=== PATIENT | female | born 1945 | race Caucasian/White ===

== ENCOUNTER → 2017-07-11 | Emergency (ER) | payer OTHER ==
[~2017-07-11] MED LIST: BUPIVACAINE HCL/PF 0.5% (5MG/ML) 10 ML VIAL ONE; HYDROmorphone HCL CARPU-JECT 1 MG/1 ML DISP.SYRIN IVPB ONE; HYDROmorphone HCL CARPU-JECT 1 MG/1 ML DISP.SYRIN IVPUSH ONE; HYDROmorphone HCL CARPU-JECT 1 MG/1 ML DISP.SYRIN ONE; LORazepam 2 MG/ML SDV VIAL ONE; morphine CARPU-JECT 4 MG/1 ML DISP.SYRIN IVPUSH ONE
--- NOTE | 2017-07-11 19:29 | PDOC ---
History of Present Illness - General History Source: Patient Exam Limitations: No Limitations - History of Present Illness Initial Comments: 07/11/17 20:37 Patient is a 71 year old female with a significant past medical history of anxiety, Hypothyroidism, who was brought by EMS to the ED with complaints of left hip pain, s/p fall that occured 1 hour prior to arrival. Patient reports walking in house when she tripped over her cat causing her to fall, causing immediate pain. She reports not being able to get up or walk after fall occured. Patient reports experiencing leg leg numbness in the secondary to fall. Denies chest pain, SOB. Denies nausea, vomiting. Denies fevers, chills. Denies loss of consciousness, hitting her head. Denies any other symptoms. Allergies: None Social history: No smoking. No alcohol. No illicit drugs. Surgical history: Bilateral hip replacement PMD: None <Bradley Mayer - Last Filed: 07/11/17 20:37> <Idris Sams - Last Filed: 07/12/17 06:31> - General Chief Complaint: Injury Stated Complaint: fall,left leg pain Time Seen by Provider: 07/11/17 19:28 Past History <Bradley Mayer - Last Filed: 07/11/17 20:37> - Past Medical History Psychiatric Problems: Yes (anxiety) Thyroid Disease: Yes (HYPOTHYROIDISM) - Surgical History Orthopedic Surgery: Yes ( for right hip replacement ) - Suicide/Smoking/Psychosocial Hx Smoking Status: No Smoking History: Unknown if ever smoked Number of Cigarettes Smoked Daily: 0 <Idris Sams - Last Filed: 07/12/17 06:31> - Past Medical History Allergies/Adverse Reactions: Allergies Allergy/AdvReac Type Severity Reaction Status Date / Time No Known Allergies Allergy Verified 07/11/17 19:24 Home Medications: Ambulatory Orders Levothyroxine [Synthroid] 125 mcg PO DAILY 01/22/12 Alprazolam [Xanax] 0 mg PO PRN PRN 07/11/17 Review of Systems - Review of Systems Able to Perform ROS?: Yes Comments:: 07/11/17 20:37 GENERAL/CONSTITUTIONAL: No fever or chills. No weakness. HEAD, EYES, EARS, NOSE AND THROAT: No change in vision. No ear pain or discharge. No sore throat. CARDIOVASCULAR: No chest pain or shortness of breath. RESPIRATORY: No cough, wheezing, or hemoptysis. GASTROINTESTINAL: No nausea, vomiting, diarrhea or constipation. GENITOURINARY: No dysuria, frequency, or change in urination. MUSCULOSKELETAL: No joint or muscle swelling or pain. No neck or back pain. SKIN: No rash NEUROLOGIC: No headache, vertigo, loss of consciousness, or change in strength/ sensation. ENDOCRINE: No increased thirst. No abnormal weight change. HEMATOLOGIC/LYMPHATIC: No anemia, easy bleeding, or history of blood clots. ALLERGIC/IMMUNOLOGIC: No hives or skin allergy. All Other Systems: Reviewed and Negative <Bradley Mayer - Last Filed: 07/11/17 20:37> *Physical Exam - Vital Signs Last Vital Signs Temp Pulse Resp BP Pulse Ox 98.1 F 85 18 149/95 100 07/11/17 19:24 07/11/17 19:24 07/11/17 19:24 07/11/17 19:24 07/11/17 19:24 - Physical Exam Comments: 07/11/17 20:37 GENERAL: Awake, alert, and fully oriented, in no acute distress HEAD: No signs of trauma EYES: PERRLA, EOMI, sclera anicteric, conjunctiva clear ENT: Auricles normal inspection, hearing grossly normal, nares patent, oropharynx clear without exudates. Moist mucosa NECK: Normal ROM, supple, no lymphadenopathy, JVD, or masses LUNGS: Breath sounds equal, clear to auscultation bilaterally. No wheezes, and no crackles HEART: Regular rate and rhythm, normal S1 and S2, no murmurs, rubs or gallops ABDOMEN: Soft, nontender, normoactive bowel sounds. No guarding, no rebound. No masses PELVIS: +Tenderness over left hip. No other bony tenderness. EXTREMITIES: Normal range of motion, no edema. No clubbing or cyanosis. No cords, erythema, or tenderness NEUROLOGICAL: Cranial nerves II through XII grossly intact. Normal speech, SKIN: Warm, Dry, normal turgor, no rashes or lesions noted. <Bradley Mayer - Last Filed: 07/11/17 20:37> ED Treatment Course - Medications Given in the ED: ED Medications Discontinued Medications Generic Name Dose Route Start Last Admin Trade Name Freq PRN Reason Stop Dose Admin Hydromorphone HCl 1 mg 07/11/17 19:35 07/11/17 19:44 Dilaudid Injection - IVPUSH 07/11/17 19:36 1 mg ONCE ONE Administration Hydromorphone HCl 1 mg 07/11/17 19:57 07/11/17 20:04 Dilaudid Injection - IVPUSH 07/11/17 19:58 1 mg ONCE ONE Administration Morphine Sulfate 4 mg 07/11/17 19:28 07/11/17 19:34 Morphine Injection - IVPUSH 07/11/17 19:29 4 mg ONCE ONE Administration <Bradley aMyer - Last Filed: 07/11/17 20:37> Medical Decision Making - Medical Decision Making 07/12/17 06:29 Plain films: mitali-prosthetic L hip fx, as read by me, referred to radiology for definitive review d/w pt's ortho Dr. Hernández at [facility], will accept trasfer procedure: Femoral nerve block, POCUS guided, with bupivacaine .5%, 15cc a/p mitali-prosthetic hip fx analgesia transfer for definitive care <Idris Sams - Last Filed: 07/12/17 06:31> *DC/Admit/Observation/Transfer - Attestations Scribe Attestion: 07/11/17 20:38 Documentation prepared by Bradley Mayer, acting as medical payment poster for Idris Sams MD/DO. <Bradley Mayer - Last Filed: 07/11/17 20:37> <Idris Sams - Last Filed: 07/12/17 06:31> Diagnosis at time of Disposition: Hip fracture Qualifiers: Encounter type: initial encounter Fracture type: closed Laterality: left Qualified Code(s): S72.002A - Fracture of unspecified part of neck of left femur , initial encounter for closed fracture - Discharge Dispostion Disposition: TRANSFER ACUTE CARE/OTHER HOSP Condition at time of disposition: Fair
[2017-07-11 19:33] VITALS: BMI 20.8
[2017-07-12 00:34] VITALS: BP 154/70; PULSE 100; TEMP 98.5
== END | disposition short-term general hospital (02) ==
LOC: FER 19:23
PROC: 3E033NZ Introduction of Analgesics, Hypnotics, Sedatives into Peripheral Vein, Percutaneous Approach (ICD-10-PCS; principal; 2017-07-11)
PROC: 3E0T3BZ Introduction of Anesthetic Agent into Peripheral Nerves and Plexi, Percutaneous Approach (ICD-10-PCS; 2017-07-11)
DX: S72.002A Fracture of unspecified part of neck of left femur, initial encounter for closed fracture (principal); W01.0XXA Fall on same level from slipping, tripping and stumbling without subsequent striking against object, initial encounter; Y93.89 Activity, other specified; Y92.009 Unspecified place in unspecified non-institutional (private) residence as the place of occurrence of the external cause; Z96.643 Presence of artificial hip joint, bilateral; F41.9 Anxiety disorder, unspecified; E03.9 Hypothyroidism, unspecified
CPT/HCPCS: 64448; 73523-TC; 96374; 96375; 96376; 99282-25

== ENCOUNTER 2019-05-03 19:25 | Emergency (ER) | payer OTHER, MEDICARE ==
[2019-05-03 19:45] VITALS: BP 149/91; PULSE 90; TEMP 97.8; BMI 21.2
[2019-05-03] MEDS ORDERED: KETOROLAC TROMETHAMINE 60 MG/2 ML VIAL ONE (19:48)
[2019-05-03] MEDS ORDERED: KETOROLAC TROMETHAMINE 60 MG/2 ML VIAL IM ONE (19:50)
--- NOTE | 2019-05-03 19:52 | PDOC ---
Documentation entered by Rona Aldridge SCRIBE, acting as scribe for Jeremy Thomas MD. Jeremy Thomas MD: This documentation has been prepared by the Luis Carlos ashley Aiswarya, SCRIBE, under my direction and personally reviewed by me in its entirety. I confirm that the documentation accurately reflects all work, treatment, procedures, and medical decision making performed by me. History of Present Illness - General Chief Complaint: Chest Pain Stated Complaint: STERNAL PAIN History Source: Patient Exam Limitations: No Limitations - History of Present Illness Initial Comments: 05/03/19 19:51 Assessment and plan: This is a 73-year-old female who comes in complaining of sternal pain in the lower third of her sternum. Patient injured it 2 days ago while trying to get something out of a dumpster that she accidentally threw away. Patient was here yesterday and had a chest x-ray as an outpatient that was read as normal. Patient now returns because she is having too much pain and discomfort. Patient medicated with Toradol and a sternal x-ray was obtained. 05/03/19 19:57 The patient is a 73 year old female, with a significant PMH of myelodysplastic syndrome, anxiety, and hypothyroidism, who presents to the emergency department with sternum pain that began 2 days ago. Patient states she injured the lower 3rd part of her sternum while trying to get something out of the dumpster that she accidentally threw away. Patient had a chest xray done yesterday which was normal but patient states pain has progressively worsened. She notes pain is exacerbated with deep inspiration. The patient denies shortness of breath, headache and dizziness.Denies fever, chills, nausea, vomit , diarrhea and constipation. Denies any numbness or tingling. . PAST MEDICAL HISTORY: myelodysplastic syndrome, anxiety, and hypothyroidism PAST SURGICAL HISTORY: right hip replacement FAMILY HISTORY: no pertinent history SOCIAL HISTORY: Pt lives with family and is employed. MEDICATIONS: reviewed ALLERGIES: As per nursing notes Adult ROS General: No fevers or chills, no weakness, no weight loss HEENT: No change in vision. No sore throat,. No ear pain CardioVascular: No chest pain or shortness of breath Respiratory:No cough, or wheezing. Gastrointestinal: no nausea, vomiting, diarrhea or constipation, No rectal bleeding Genitourinary: No dysuria, hematuria, or frequency Musculoskeletal: +sternum pain Neurologic: No headache, vertigo, dizziness or loss of consciousness Psychiatric: nor depression Skin: No rashes or easy bruising Endocrine: no increased thirst or abnormal weight change Allergic: no skin or latex allergy All other systems reviewed and normal Adult Exam: General: Well-nourished well-developed individual, no acute distress HEENT: Throat: Normal, tonsils normal, no erythema or exudate Neck: Supple, no meningeal signs, no lymphadenopathy Eyes::Pupils equal reactive and round, extraocular motion intact Chest: +tenderness on palpation to the lower 3rd of the sternum. No tenderness to rib, ecchymosis or swelling. Cardiac: S1-S2 normal, regular rate and rhythm, no murmurs rubs or gallops Respiratory: Lungs clear to auscultation bilateral Abdomen: Soft, nondistended, normal bowel sounds, nontender to palpation diffusely Extremities: Warm, dry, no cyanosis, clubbing, or edema Skin: No rashes Neuro: Alert and oriented x3, nonfocal exam, grossly intact, normal gait Psych: Normal mood and affect Past History - Past Medical History Allergies/Adverse Reactions: Allergies Allergy/AdvReac Type Severity Reaction Status Date / Time No Known Allergies Allergy Verified 07/11/17 19:24 Home Medications: Ambulatory Orders Levothyroxine [Synthroid] 125 mcg PO DAILY 01/22/12 Alprazolam [Xanax] 0 mg PO PRN PRN 07/11/17 Naproxen [Naprosyn] 500 mg PO BID #20 tablet 05/03/19 Anemia: Yes (MYELODYSPLASTIC SYNDROME) COPD: No Psychiatric Problems: Yes (anxiety) Thyroid Disease: Yes (HYPOTHYROIDISM) - Surgical History Orthopedic Surgery: Yes ( for right hip replacement ) - Psycho Social/Smoking Cessation Hx Smoking Status: No Smoking History: Unknown if ever smoked Have you smoked in the past 12 months: No Number of Cigarettes Smoked Daily: 0 Information on smoking cessation initiated: No Hx Alcohol Use: No Drug/Substance Use Hx: No Substance Use Type: None *Physical Exam - Vital Signs Last Vital Signs Temp Pulse Resp BP Pulse Ox 97.8 F 90 16 149/91 100 05/03/19 19:28 05/03/19 19:28 05/03/19 19:28 05/03/19 19:28 05/03/19 19:28 ED Treatment Course - RADIOLOGY Radiology Studies Ordered: Category Date Time Status STERNUM 2 VIEWS [RAD] Stat Radiology 05/03/19 19:50 Ordered Discharge - Discharge Information Problems reviewed: Yes Clinical Impression/Diagnosis: Sternal fracture Qualifiers: Encounter type: initial encounter Sternal location: unspecified Fracture type: closed Qualified Code(s): S22.20XA - Unspecified fracture of sternum, initial encounter for closed fracture Condition: Stable Disposition: HOME - Admission No - Additional Discharge Information Prescriptions: Naproxen [Naprosyn] 500 mg PO BID #20 tablet - Follow up/Referral Referrals: Andreas Mcfarland MD [Primary Care Provider] - - Patient Discharge Instructions Additional Instructions: For the pain take naproxen 1 tablet twice a day with food do not take on an empty stomach. I sent a prescription to your pharmacy for the naproxen. Your x-ray showed a nondisplaced fracture of the sternum. Return to the emergency department immediately with ANY new, persistent or worsening symptoms. Continue any medications as previously prescribed by your physician. You should follow up with your primary doctor as soon as possible regarding today's emergency department visit. . Please make sure your doctor reviews the results of your emergency evaluation. Thank you for coming to the Emergency Department today for your care. It was a pleasure to see you today. Please note that your evaluation is INCOMPLETE until you follow-up with your doctor. - Post Discharge Activity
--- NOTE | 2019-05-04 11:31 | EKG ---
Test Reason : Blood Pressure : / mmHG Vent. Rate : 086 BPM Atrial Rate : 086 BPM P-R Int : 128 ms QRS Dur : 080 ms QT Int : 390 ms P-R-T Axes : 059 -20 058 degrees QTc Int : 466 ms NORMAL SINUS RHYTHM NORMAL ECG NO PREVIOUS ECGS AVAILABLE Confirmed by GENOVEVA PALMA, SPENCER ([id number]) on 05/04/2019 11:31:05 AM Referred By: VERONIKA MCGRAW Confirmed By:SPENCER TOMAS MD
== END 2019-05-03 20:40 | disposition home or self-care (01) ==
LOC: FER 19:25
PROC: 3E0233Z Introduction of Anti-inflammatory into Muscle, Percutaneous Approach (ICD-10-PCS; principal; 2019-05-03)
DX: S22.20XA Unspecified fracture of sternum, initial encounter for closed fracture (principal); E03.9 Hypothyroidism, unspecified; D64.9 Anemia, unspecified; F41.9 Anxiety disorder, unspecified; W22.8XXA Striking against or struck by other objects, initial encounter; Y93.89 Activity, other specified; Y92.9 Unspecified place or not applicable
CPT/HCPCS: 71120-TC-FY; 93005; 96372; 99282-25

== ENCOUNTER 2020-04-03 17:30 | Emergency (ER) | payer OTHER, MEDICARE ==
--- NOTE | 2020-04-03 17:34 | PDOC ---
History of Present Illness - General Chief Complaint: Altered Mental Status Stated Complaint: PER EMS CONFUSED IN [place] PARKING LOT - History of Present Illness Initial Comments: 04/03/20 18:15 74 yo female with pmh of MDS and hypothyroidism brought to the ED by EMS for AMS. Pt according to EMS came in to gym for physical therapy and was wandering around parking lot. According to pt she fell yesterday down her stairs did not hit head and went to [facility] for an evaluation. At [facility] she was given a CT of the head which was negative. Pt also hurt right foot on fall and wanted to go to gym for physical therapy on foot. As the pt was walking towards her car pt was "grabbed" by EMS and because she was not sure what the date was was sent to the ER. PT currently denying any lightheadenss, headache, chest pain, sob, abd pain, n/v/d/c. PMH: MDS, hypothyroidism Meds: synthroid Allergies: denies PSH: left leg surgery PCP: [facility] Social: occasional alcohol; denies drugs or tobacco Past History - Medical History Allergies/Adverse Reactions: Allergies Allergy/AdvReac Type Severity Reaction Status Date / Time No Known Allergies Allergy Verified 04/03/20 17:33 Home Medications: Ambulatory Orders Levothyroxine [Synthroid -] 25 mcg PO DAILY 04/03/20 Anemia: Yes (MYELODYSPLASTIC SYNDROME) COPD: No Psychiatric Problems: Yes (anxiety) Thyroid Disease: Yes (HYPOTHYROIDISM) - Surgical History Orthopedic Surgery: Yes ( for right hip replacement ) - Psycho-Social/Smoking History Smoking Status: No Smoking History: Unknown if ever smoked Have you smoked in the past 12 months: No Number of Cigarettes Smoked Daily: 0 Review of Systems - Review of Systems Comments:: 04/03/20 22:30 GENERAL/CONSTITUTIONAL: No fever or chills. No weakness. HEAD, EYES, EARS, NOSE AND THROAT: No change in vision. No ear pain or discharge. No sore throat. CARDIOVASCULAR: No chest pain or shortness of breath RESPIRATORY: No cough, wheezing, or hemoptysis. GASTROINTESTINAL: No nausea, vomiting, diarrhea or constipation. GENITOURINARY: No dysuria, frequency, or change in urination. MUSCULOSKELETAL: Right ankle pain SKIN: No rash NEUROLOGIC: No headache, vertigo, loss of consciousness, or change in strength/sensation. ENDOCRINE: No increased thirst. No abnormal weight change ALLERGIC/IMMUNOLOGIC: No hives or skin allergy. *Physical Exam - Physical Exam 04/03/20 22:31 GENERAL: Awake, alert, and fully oriented, in no acute distress HEAD: No signs of trauma, normocephalic, atraumatic EYES: PERRLA, EOMI, sclera anicteric, conjunctiva clear ENT: Auricles normal inspection, hearing grossly normal, nares patent, oropharynx clear without exudates. Moist mucosa NECK: Normal ROM, supple, no lymphadenopathy, JVD, or masses LUNGS: No distress, speaks full sentences, clear to auscultation bilaterally HEART: Regular rate and rhythm, normal S1 and S2, no murmurs, rubs or gallops, peripheral pulses normal and equal bilaterally. ABDOMEN: Soft, nontender, normoactive bowel sounds. No guarding, no rebound. No masses EXTREMITIES : 3 cm ecchymosis on dorsal aspect on right foot. FUll rom in upper and lower ext NEUROLOGICAL: Cranial nerves II through XII intact. Normal speech, normal gait, no focal sensorimotor deficits. Finger to nose and heel to cameron intact. SKIN: Warm, Dry, normal turgor, no rashes or lesions noted Medical Decision Making - Medical Decision Making 04/03/20 18:24 74 yo female with pmh MDS and hypothyroidism (with psych history from chart) presents to ED for AMS according to EMS. PT wants to leave AMA here is AAOx3, understands what has happened to her, denies any alcohol or intoxication, and pt fully understands risks and benefits to not receiving full medical evaluation. Pt understands risk of possible stroke, bleed, infection, coma, paralysis, and more. Pt fully understands risk but rather go home and be with daughter who is returning from grad school so decided to leave AMA. Discharge - Discharge Information Problems reviewed: Yes Clinical Impression/Diagnosis: MDS (myelodysplastic syndrome), Confusion Condition: Stable Disposition: AGAINST MEDICAL ADVICE - Follow up/Referral - Patient Discharge Instructions Patient Printed Discharge Instructions: How to Prevent Falls Additional Instructions: You came to the ED after a fall. You want to leave aganist medical advice. You are alert awake and oriented to person, place and time. You understand the decision to leave the risk of infection, bleeding, stroke, heart attack, fracture, coma, or . Please return if you have any of the following: - extreme headache - loss of consciousness - chest pain or shortness of breath Any emergent symptoms please call for medical help right away. - Post Discharge Activity
--- NOTE | 2020-04-03 17:41 | PDOC ---
Attending Attestation - Resident Resident Name: Jose Collier - ED Attending Attestation I have performed the following: I have examined & evaluated the patient, The case was reviewed & discussed with the resident, I agree w/resident's findings & plan, Exceptions are as noted - HPI HPI: 04/03/20 17:37 74YOF with h/o myelodysplastic syndrome, right hip replacement, hypothyroidism on levothyroxine, anxiety on alprazolam, prior fall with resultant hip fracture (2018), and prior fall with resultant sternal fracture (2019), who was BIBEMS for report of confusion. EMS states bystanders called because the patient was wandering around in a parking lot trying to find her car and trying to find her physical therapist. The patient herself states she forgot where she parked and had just exited the building from the PT office and the EMS crew found her and put her on the stretcher and took her here against her will. She has no complaints, is A/Ox3 (cannot say the date), and she wants to go home. She declines any workup or intervention at this time, states she has an appointment with her PCP at [facility] on Monday04/07/20. - Physicial Exam PE: 04/03/20 17:40 GENERAL: elderly, nontoxic-appearing, no distress, a bit bizarre but A/Ox3 and answers questions appropriately HEENT: PERRLA, EOMI, moist mucous membranes NECK/BACK: no midline ttp, no spinal stepoff or deformity, no hematoma, full ROM, neck supple CARDIOVASCULAR: regular rate/rhythm, no MGR, strong peripheral pulses, capillary refill <2 seconds, extremities wwp, no edema LUNGS/RESPIRATORY: no respiratory distress, CTAB GI/ABDOMEN: symmetric [id number], normoactive BS, soft, no ttp, no midline pulsatile masses : no CVA tenderness MSK/EXTREMITIES: no acute-appearing muscle atrophy, no acute deformity DERM/SKIN: warm and dry, no pallor, no jaundice, no rash, no pathologic- appearing bruising, no skin breakdown, no cuts, no lesions NEUROLOGICAL: GCS 15, CN II-XII grossly intact, 5/5 strength proximally and distally, no facial droop, normal gait - Medical Decision Making 04/03/20 17:40 74YOF with MDS p/w reported confusion as stated by EMS, found in parking lot wandering per their report. Initial Vital Signs Temp Pulse Resp BP Pulse Ox 97.8 F 89 16 139/74 99 04/03/20 17:33 04/03/20 17:33 04/03/20 17:33 04/03/20 17:33 04/03/20 17:33 Patient refusing any and all workup and treatment. States she wants to go home and will sign AMA. She is a bit bizarre affect but is A/Ox3 and has decision making capacity. I have had a long discussion with them about the risks of leaving against our strong recommendation. She understands that the risks include and serious morbidity. She is of sound mind, is able to internalize and process and repeat back the information to me. Despite our conversation and her understanding of the gravity of the situation, she chooses to leave AMA. AMA paperwork is completed and signed by all required parties. We also give them very clear discharge instructions to come back if they change their mind. We give them instructions on how to best care for themselves at home given that they choose not to stay here. Specific return precautions are discussed and they know they can return to the ED at any time. Discharge - Discharge Information Problems reviewed: Yes Clinical Impression/Diagnosis: MDS (myelodysplastic syndrome), Confusion Condition: Stable Disposition: AGAINST MEDICAL ADVICE - Admission No - Follow up/Referral - Patient Discharge Instructions Patient Printed Discharge Instructions: How to Prevent Falls Additional Instructions: You came to the ED after a fall. You want to leave aganist medical advice. You are alert awake and oriented to person, place and time. You understand the decision to leave the risk of infection, bleeding, stroke, heart attack, fracture, coma, or . Please return if you have any of the following: - extreme headache - loss of consciousness - chest pain or shortness of breath Any emergent symptoms please call for medical help right away. - Post Discharge Activity
--- OUTSIDE RECORDS SUMMARY | 2020-04-03 17:41 | XMS ---
:1945 Author Organization [facility] Care Team Providers Name Role Phone Wilmer Del Rio MD Unavailable Unavailable FaderAndreas Unavailable Fader, M Unavailable Fader, M Unavailable Fader, M Unavailable Fader, M Unavailable Fader, M Unavailable Fader, M Unavailable Fader, M Unavailable Fader, M Unavailable Fader, M Unavailable Fader, M Unavailable Fader, M Unavailable Fader, M Unavailable Fader, M Unavailable Re-disclosure Warning The records that you are about to access may contain information from federally- assisted alcohol or drug abuse programs. If such information is present, then the following federally mandated warning applies: This information has been disclosed to you from records protected by federal confidentiality rules (42 CFR part 2). The federal rules prohibit you from making any further disclosure of this information unless further disclosure is expressly permitted by the written consent of the person to whom it pertains or as otherwise permitted by 42 CFR part 2. A general authorization for the release of medical or other information is NOT sufficient for this purpose. The Federal rules restrict any use of the information to criminally investigate or prosecute any alcohol or drug abuse patient.The records that you are about to access may contain highly sensitive health information, the redisclosure of which is protected by Article 27-F of the [facility] Public Health law. If you continue you may haveaccess to information: Regarding HIV / AIDS; Provided by facilities licensed or operated by the [facility] Office of Mental Health; or Provided by the [facility] Office for People With Developmental Disabilities. If such information is present, then the following [facility] mandated warning applies: This information has been disclosed to you from confidential records which are protected by state law. State law prohibits you from making any further disclosure of this information without the specific written consent of the person to whom it pertains, or as otherwise permitted by law. Any unauthorized further disclosure in violation of state law may result in a fine or halfway sentence or both. A general authorization for the release of medical or other information is NOT sufficient authorization for further disclosure. Encounters Encounter Providers Location Date Indications Data Source(s ) Attender: Andreas 02/27/2020 [facility] ( [facility] 12:[facility]:00 AM [facility]) Office Attender: Andreas Mcfarland 02/27/2020 12:00:00 AM E DT [facility] ([facility] Office Attender: Andreas Mcfarland 02/27/2020 12:00:00 AM E DT [facility] Office Attender: Andreas Mcfarland 02/27/2020 12:00:00 AM E DT [facility] ([facility] Office Attender: Andreas Mcfarland 01/09/2020 12:00:00 AM E DT [facility] Office Attender: Andreas Mcfarland 01/09/2020 12:00:00 AM E DT [facility] Office Attender: Andreas Mcfarland 01/09/2020 12:00:00 AM E DT [facility] Office Outpatient Attender: Wilmer 01/25/2019 08:00:00 2UPRBC-ANE MORGAN Margarito Del Rio MD AM [facility]T [facility] [id number] Medications Medication Brand Start Product Dose Route Administrative Pharmacy marcellus Indications Reaction Description Data Name Date Form Instructions Instructions Source(s) Alprazolam ALPRAZ 02/26/ TABLET 90 complet ALPRA ZOLAM [facility] (St 1 MG Oral OLAM:2019 ed [facility] Tablet [id number] 12:00: Medical, ALPRAZOLAM: 00 AM PC) [id number] EDT Temazepam TEMAZE 02/26/ CAPSULE 9 complet TEMAZ EPAM [facility] (St 15 MG Oral LIS:2019 ed [facility] Capsule [id number] 12:00: Medical, TEMAZEPAM:1 00 AM PC) [id number] EDT Mirtazapine MIRTAZ 02/02/ TABLET 30 complet MIRT AZAPINE [facility] (St 15 MG Oral APINE: 2019 ed [facility] Tablet [id number] 12:00: Medical, MIRTAZAPINE 00 AM PC) :[id number] EDT Levothyroxi LEVOTH 01/06/ TABLET 90 complet LEVO THYROXIN [facility] (St ne Sodium YROXIN 2019 ed E [facility] 0.125 MG [id number] 12:00: Medical , Oral Tablet 24 00 AM PC) LEVOTHYROXI EDT [id number] Levothyroxi LEVOTH 01/06/ TABLET 90 complet LEVO THYROXIN [facility] (St ne Sodium YROXIN 2019 ed E [facility] 0.125 MG [id number] 12:00: Medical , Oral Tablet 24 00 AM PC) LEVOTHYROXI EDT [id number] Mirtazapine MIRTAZ 12/29/ TABLET 30 complet MIRT AZAPINE [facility] (St 15 MG Oral APINE: 2019 ed [facility] Tablet [id number] 12:00: Medical, MIRTAZAPINE 00 AM PC) :[id number] EDT Alprazolam ALPRAZ 12/03/ TABLET 90 complet ALPRA ZOLAM [facility] (St 1 MG Oral OLAM:2019 ed [facility] Tablet 60571 12:00: Medical, ALPRAZOLAM: 00 AM PC) [id number] EDT Insurance Providers Payer name Policy type Policy ID Covered Covered constitution party's Policy P francisco / Coverage constitution party ID relationship to Rossi Inf ormation type rossi MEDICARE [id number] SP [id number] [id number] [facility] [id number] SP [id number] CARE [place] [id number] PART B DOWNSTATE AARP MEDICARE [id number] SU[place] [id number] PART B DOWNSTATE MEDICARE [id number] SP [id number] [id number] [facility] [id number] PT [id number] CARE OPTIONS MEDICARE [id number] PT [id number] N32 [facility] [id number] SP [id number] CARE OPTIONS MEDICARE [id number] SP [id number] N32 MEDICARE [id number] SP [id number] A Problems, Conditions, and Diagnoses Code Display Name Description Problem Type Effective Dates Data Source(s) G47.00 Insomnia, INSOMNIA, Problem 02/27/2020 [facility] (St unspecified UNSPECIFIED 12:00:00 AM RINA Bailey) R07.2 Precordial pain PRECORDIAL PAIN Problem 05/02/2019 MEDG EN (St 12:00:00 AM RINA Morse) R07.2 Precordial pain PRECORDIAL PAIN Problem 05/02/2019 MEDG EN (St 12:00:00 AM RINA Morse) Surgeries/Procedures Procedure Description Date Indications Data Source(s) Documentation of current 02/27/2020 [facility] ([facility] (procedure) 12:00:00 AM EDRINA Altman) Documentation of current 02/27/2020 [facility] ([facility] (procedure) 12:00:00 AM RINA Prescott) OFFICE OUTPATIENT VISIT 02/27/2020 [facility] ([facility] 15 MINUTES 12:00:00 AM RINA Cerna) Documentation of current 01/09/2020 [facility] ([facility] (procedure) 12:00:00 AM RINA Prescott) Documentation of current 01/09/2020 [facility] ([facility] (procedure) 12:00:00 AM RINA Prescott) Documentation of current 01/09/2020 [facility] ([facility] (procedure) 12:00:00 AM EDT edical, ) Documentation of current 01/09/2020 [facility] ([facility] (procedure) 12:00:00 AM EDT edical, ) Documentation of current 01/09/2020 [facility] ([facility] (procedure) 12:00:00 AM EDT [facility], ) Documentation of current 01/09/2020 [facility] current 01/09/2020 [facility], 01/09/2020 [facility] N ([facility] includes a personalized 12:00:00 AM EDT [facility], ) prevention plan of service (pps), subsequent visit ECG ROUTINE ECG W/LEAST 01/09/2020 [facility] EN ([facility] 12 LDS W/I&R 12:00:00 AM [facility], ) Documentation of current 01/09/2020 [facility] ([facility] (procedure) 12:00:00 AM EDT [facility], ) Documentation of current 01/09/2020 [facility] ([facility] (procedure) 12:00:00 AM EDT [facility], ) Annual wellness visit, 01/09/2020 MED[facility] N ([facility] includes a personalized 12:00:00 AM EDT [facility], ) prevention plan of service (pps), subsequent visit ECG ROUTINE ECG W/LEAST 01/09/2020 [facility] EN ([facility] 12 LDS W/I&R 12:00:00 AM [facility], ) Documentation of current 07/04/2019 [facility] ([facility] (procedure) 12:00:00 AM EST edical, ) Documentation of current 07/04/2019 [facility] ([facility] (procedure) 12:00:00 AM EST edical, ) Documentation of current 07/04/2019 [facility] ([facility] (procedure) 12:00:00 AM EST edical, ) Documentation of current 07/04/2019 [facility] ([facility] (procedure) 12:00:00 AM RINA Luke) Documentation of current 07/04/2019 [facility] ([facility]procedure) 12:00:00 AM [facility]) Documentation of current 07/04/2019 [facility] ([facility]procedure) 12:00:00 AM [facility]) Documentation of current 07/04/2019 [facility] ([facility] (procedure) 12:00:00 AM RINA Luke) OFFICE OUTPATIENT VISIT 07/04/2019 [facility] ([facility] 15 MINUTES 12:00:00 AM [facility] Arce, PC) Documentation of current 07/04/2019 [facility] ([facility] (procedure) 12:00:00 AM [facility]) Documentation of current 07/04/2019 [facility] ([facility] (procedure) 12:00:00 AM [facility], PC) Documentation of current 07/04/2019 [facility] ([facility] (procedure) 12:00:00 AM [facility]) Documentation of current 07/04/2019 [facility] ([facility] (procedure) 12:00:00 AM [facility], PC) Documentation of current 07/04/2019 [facility] ([facility] (procedure) 12:00:00 AM [facility] sa[facility], PC) Documentation of current 07/04/2019 [facility] ([facility] (procedure) 12:00:00 AM [facility] PC) Documentation of current 07/04/2019 [facility] ([facility] (procedure) 12:00:00 AM [facility] PC) OFFICE OUTPATIENT VISIT 07/04/2019 [facility] ([facility] 15 MINUTES 12:00:00 AM [facility] Arce, PC) Documentation of current 05/02/2019 [facility] ([facility] (procedure) 12:00:00 AM [facility] sa[facility], PC) Documentation of current 05/02/2019 [facility] ([facility] (procedure) 12:00:00 AM [facility] sa[facility], PC) Documentation of current 05/02/2019 [facility] ([facility] (procedure) 12:00:00 AM [facility] sa[facility], PC) Documentation of current 05/02/2019 [facility] ([facility] (procedure) 12:00:00 AM [facility], PC) Documentation of current 05/02/2019 [facility] ([facility] (procedure) 12:00:00 AM [facility], PC) OFFICE OUTPATIENT VISIT 05/02/2019 [facility] ([facility] 15 MINUTES 12:00:00 AM [facility], PC) Documentation of current 05/02/2019 [facility] ([facility] (procedure) 12:00:00 AM [facility] PC) Documentation of current 05/02/2019 [facility] ([facility] (procedure) 12:00:00 AM [facility], PC) Documentation of current 05/02/2019 [facility] ([facility] (procedure) 12:00:00 AM [facility], PC) Documentation of current 05/02/2019 [facility] ([facility] (procedure) 12:00:00 AM [facility] PC) Documentation of current 05/02/2019 [facility] ([facility] (procedure) 12:00:00 AM DAVE sahu, RINA) OFFICE OUTPATIENT VISIT 05/02/2019 [facility] ([facility] 15 MINUTES 12:00:00 AM [facility]) Social History Code Duration Value Status Description Data Source(s ) Smoking 02/27/2020 Marital Status completed Marital Status [facility] (St 12:00:00 AM - w/ - w/ [facility], EDT advanced advanced PC) Parkinson`s, lives Parkinson`s, [facility] Members 2 Lives Members 2 Lives Independently Yes Independently Yes Number of Children Number of Childre n 2 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 or Most days Exercise Frequency Other (had been doing [employer]) Nutritional Counseling Yes Alcohol Use Alcohol Use Social Tobacco Status: Never smoker Smoking 01/10/2020 Former smoker completed Former smoker [facility] ( St 12:00:00 AM [facility] ryan, EDT PC) Vital Signs ID Date Data Source UNK Name Value Range Interpretation Code Description Data Source(s) Heart rate 94 /min 94 /min [facility] ([facility] , ) Respiratory rate 16 /min 16 /min [facility] ( [facility] , ) Body temperature 97.5 F 97.5 F MED[facility] ( [facility] , ) Inhaled oxygen 99 % 99 % [facility] ([facility], ) Body mass index 19.7 kg/m2 19.7 kg/m2 MEDGEN (S t (BMI) [Ratio] [facility], ) Diastolic blood 65 mm[Hg] 65 mm[Hg] MED[facility] (S t pressure [facility] , ) Systolic blood 157 mm[Hg] 157 mm[Hg] MEDGEN (St pressure [facility] , ) Body weight 124 lb 124 lb MED[facility] ([facility] , ) Body height 66.5 in 66.5 in MED[facility] ([facility] , ) Diastolic blood 66 mm[Hg] 66 mm[Hg] MEDGEN (S t pressure [facility] , ) Systolic blood 134 mm[Hg] 134 mm[Hg] MEDGEN ( pressure [facility] , ) Body weight 128 lb 128 lb MED[facility] ([facility] , ) Body height 66.5 in 66.5 in MED[facility] ([facility] , ) Heart rate 75 /min 75 /min [facility] ([facility] , ) Respiratory rate 17 /min 17 /min MED[facility] ( [facility]) Body temperature 97.5 F 97.5 F MED[facility] ( [facility]) Inhaled oxygen 93 % 93 % [facility] ([facility]) Body mass index 20.3 kg/m2 20.3 kg/m2 MEDGEN (S t (BMI) [Ratio] [facility], ) Diastolic blood 66 mm[Hg] 66 mm[Hg] [facility] ([facility]) Systolic blood 134 mm[Hg] 134 mm[Hg] MEDGEN ([facility]) Body weight 128 lb 128 lb MED[facility] ([facility]) Body height 66.5 in 66.5 in [facility] ([facility]) Heart rate 75 /min 75 /min [facility] ([facility]) Respiratory rate 17 /min 17 /min MED[facility] ( [facility]) Body temperature 97.5 F 97.5 F MED[facility] ( [facility]) Inhaled oxygen 93 % 93 % MED[facility] ([facility], ) Body mass index 20.3 kg/m2 20.3 kg/m2 MED[facility] (S t (BMI) [Ratio] [facility]) Heart rate 83 /min 83 /min MED[facility] ([facility]) Respiratory rate 17 /min 17 /min MED[facility] ( [facility]) Body temperature 98 F 98 F MED[facility] ( [facility]) Inhaled oxygen 95 % 95 % [facility] ([facility], ) Body mass index 22.3 kg/m2 22.3 kg/m2 MED[facility] (S t (BMI) [Ratio] [facility]) Diastolic blood 52 mm[Hg] 52 mm[Hg] MEDGEN (S t [facility]) Systolic blood 148 mm[Hg] 148 mm[Hg] MEDGEN ([facility]) Body weight 134 lb 134 lb MED[facility] ([facility]) Body height 65 in 65 in MED[facility] ([facility]) Heart rate 83 /min 83 /min [facility] ([facility]) Respiratory rate 17 /min 17 /min MED[facility] ( [facility]) Body temperature 98 F 98 F MED[facility] ( [facility]) Inhaled oxygen 95 % 95 % [facility] ([facility], ) Body mass index 22.3 kg/m2 22.3 kg/m2 MED[facility] (S t (BMI) [Ratio] [facility], ) Diastolic blood 52 mm[Hg] 52 mm[Hg] MEDGEN (S t pressure [facility]) Systolic blood 148 mm[Hg] 148 mm[Hg] MEDGEN ([facility]) Body weight 134 lb 134 lb MED[facility] ([facility]) Body height 65 in 65 in [facility] ([facility]) Heart rate 92 /min 92 /min [facility] ([facility]) Respiratory rate 14 /min 14 /min MED[facility] ( [facility]) Body mass index 22 kg/m2 22 kg/m2 MED[facility] (S t (BMI) [Ratio] [facility], ) Diastolic blood 60 mm[Hg] 60 mm[Hg] MEDGEN (S t pressure [facility]) Systolic blood 130 mm[Hg] 130 mm[Hg] MED[facility] ([facility]) Body weight 132 lb 132 lb MED[facility] ([facility]) Body height 65 in 65 in MED[facility] ([facility]) Heart rate 92 /min 92 /min [facility] ([facility]) Respiratory rate 14 /min 14 /min MED[facility] ( [facility]) Body mass index 22 kg/m2 22 kg/m2 MEDGEN (S t (BMI) [Ratio] [facility], ) Diastolic blood 60 mm[Hg] 60 mm[Hg] MEDGEN (S t pressure [facility]) Systolic blood 130 mm[Hg] 130 mm[Hg] [facility] ([facility]) Body weight 132 lb 132 lb MED[facility] ([facility]) Body height 65 in 65 in MED[facility] ([facility])
[2020-04-03 17:50] VITALS: BP 139/74; PULSE 89; TEMP 97.8; BMI 20.1
== END 2020-04-03 18:25 | disposition left against medical advice (07) ==
LOC: FER 17:30
DX: D46.9 Myelodysplastic syndrome, unspecified (principal); R41.0 Disorientation, unspecified
CPT/HCPCS: 99282-25

== ENCOUNTER 2020-07-02 09:32 | Inpatient (IN) | payer OTHER, MEDICARE ==
[2020-07-02] MEDS ORDERED: SODIUM CHLORIDE 0.9% 500 ML INFUS.BAG IV ONE (09:53)
[2020-07-02] MEDS ORDERED: morphine CARPU-JECT 4 MG/1 ML DISP.SYRIN IVPUSH ONE ×2 (09:53→11:44)
[2020-07-02] MEDS ORDERED: ONDANSETRON 4 MG/2 ML VIAL IVPUSH ONE (09:53)
[2020-07-02] MEDS ORDERED: ONDANSETRON 4 MG/2 ML VIAL ONE (10:02)
[2020-07-02] MEDS ORDERED: morphine SULFATE 4 MG/ML VIAL ONE ×2 (10:02→11:46)
[2020-07-02 10:30] LABS: INR 1.17 (0.82-1.09)
[2020-07-02 10:40] LABS: HEMATOCRIT 24.6 % (32.4-45.2); HEMOGLOBIN 7.8 GM/dl (10.7-15.3); MCH 28.4 pg (25.7-33.7); MCHC 31.7 g/dl (32.0-36.0); MEAN CELL VOLUME 89.5 fl (80-96); MEAN PLT VOLUME 8.1 fl (7.5-11.1); PLATELET COUNT 317 K/MM3 (134-434); RBC 2.75 M/mm3 (3.60-5.2); RDW 31.8 % (11.6-15.6); WHITE BLOOD COUNT 26.9 K/mm3 (4.0-10.8)
[2020-07-02 10:47] LABS: ALBUMIN 4.3 g/dl (3.4-5.0); CALCIUM 8.6 mg/dl (8.5-10); CREATININE 1.4 mg/dl (0.55-1.3); TOT PROT 6.4 g/dl (6.4-8.2)
[2020-07-02 11:01] LABS: ANISOCYTOSIS 3+; OVALOCYTE 1+; PLATELET ESTIMATE ADEQUATE; TARGET CELLS 1+
[2020-07-02 17:20] VITALS: BMI 21.3
[2020-07-02] MEDS: ACETAMINOPHEN 325 MG TABLET (FP) PO PRN (17:43)
[2020-07-02] MEDS: oxyCODONE HCL 5 MG TABLET PO PRN ×2 (17:44→23:00)
[2020-07-03] MEDS: LEVOTHYROXINE NA 25 MCG TABLET (FP) PO SCH (05:13)
[2020-07-03] MEDS: oxyCODONE HCL 5 MG TABLET PO PRN ×2 (05:19→16:13)
[2020-07-03 08:00] LABS: HEMATOCRIT 21.4 % (32.4-45.2); MCH 28.8 pg (25.7-33.7); MCHC 31.7 g/dl (32.0-36.0); MEAN CELL VOLUME 90.7 fl (80-96); MEAN PLT VOLUME 8.5 fl (7.5-11.1); PLATELET COUNT 224 K/MM3 (134-434); RBC 2.36 M/mm3 (3.60-5.2); RDW 32.1 % (11.6-15.6); WHITE BLOOD COUNT 9.5 K/mm3 (4.0-10.8)
[2020-07-03 08:18] LABS: ALBUMIN 3.8 g/dl (3.4-5.0); BILIRUBIN,TOTAL 0.9 mg/dl (0.2-1); CALCIUM 8.3 mg/dl (8.5-10); CREATININE 1.6 mg/dl (0.55-1.3); MAGNESIUM 1.8 mg/dL (1.8-2.4); TOT PROT 5.6 g/dl (6.4-8.2)
[2020-07-03 08:20] LABS: HEMOGLOBIN 6.8 GM/dl (10.7-15.3)
[2020-07-03 08:21] LABS: ADD RBC MORPHOLOGY YES
[2020-07-03] MEDS: ACETAMINOPHEN 325 MG TABLET (FP) PO PRN (09:49)
[2020-07-03 09:55] LABS: ANISOCYTOSIS 3+; PLATELET ESTIMATE ADEQUATE
[2020-07-03 09:56] LABS: TARGET CELLS 1+
[2020-07-03] MEDS ORDERED: ACETAMINOPHEN 1000 MG/100 ML VIAL (NON FORMULARY) IVPB PRN (10:12)
[2020-07-03] MEDS ORDERED: FUROSEMIDE 40 MG/4 ML INJECTABLE VIAL IVPUSH ONE (16:22)
[2020-07-04] MEDS: LEVOTHYROXINE NA 25 MCG TABLET (FP) PO SCH (06:24)
[2020-07-04 09:29] LABS: BASO % 1.2 % (0-2.0); HEMOGLOBIN 9.6 GM/dl (10.7-15.3); LYMPH % 7.6 % (8-40); MCH 29.1 pg (25.7-33.7); MCHC 33.1 g/dl (32.0-36.0); MEAN CELL VOLUME 87.9 fl (80-96); MEAN PLT VOLUME 10.6 fl (7.5-11.1); MONO % 20.6 % (3.8-10.2); NEUT % 70.6 % (42.8-82.8); PLATELET COUNT 297 K/MM3 (134-434); RDW 24.2 % (11.6-15.6); WHITE BLOOD COUNT 17.4 K/mm3 (4.0-10.8)
[2020-07-04 09:49] LABS: ALBUMIN 3.6 g/dl (3.4-5.0); BILIRUBIN,TOTAL 1.4 mg/dl (0.2-1); CALCIUM 7.6 mg/dl (8.5-10); CREATININE 1.9 mg/dl (0.55-1.3); MAGNESIUM 1.7 mg/dL (1.8-2.4); POTASSIUM 4.3 mmol/L (3.5-5.1); TOT PROT 5.7 g/dl (6.4-8.2)
[2020-07-04] MEDS: oxyCODONE HCL 5 MG TABLET PO PRN ×3 (10:27→20:47)
[2020-07-04] MEDS: SODIUM CHLORIDE 1,000 ML IV SCH (14:43)
[2020-07-04] MEDS: MAGNESIUM OXIDE 400 MG TABLET (FP) PO SCH ×2 (14:43→21:01)
[2020-07-04] MEDS: CALCIUM 250MG/VIT-D 125 UNITS 1 COMBO TABLET PO SCH (22:17)
[2020-07-05] MEDS: oxyCODONE HCL 5 MG TABLET PO PRN ×3 (06:02→19:20)
[2020-07-05] MEDS: LEVOTHYROXINE NA 25 MCG TABLET (FP) PO SCH (06:02)
[2020-07-05 09:42] LABS: ALBUMIN 3.1 g/dl (3.4-5.0); BILIRUBIN,TOTAL 1.1 mg/dl (0.2-1); CALCIUM 7.2 mg/dl (8.5-10); CREATININE 1.5 mg/dl (0.55-1.3); MAGNESIUM 1.9 mg/dL (1.8-2.4); POTASSIUM 4.6 mmol/L (3.5-5.1); TOT PROT 5.1 g/dl (6.4-8.2)
[2020-07-05] MEDS: CALCIUM 250MG/VIT-D 125 UNITS 1 COMBO TABLET PO SCH ×2 (09:43→21:38)
[2020-07-05] MEDS: MAGNESIUM OXIDE 400 MG TABLET (FP) PO SCH ×2 (09:44→21:38)
[2020-07-05] MEDS ORDERED: traMADol HCL 50 MG TABLET PO PRN (10:45)
[2020-07-05 10:58] LABS: BASO % 0.4 % (0-2.0); EOS % 0.3 % (0-4.5); HEMOGLOBIN 8.2 GM/dL (10.7-15.3); LYMPH % 11.7 % (8-40); MCH 29.2 pg (25.7-33.7); MCHC 32.7 g/dl (32.0-36.0); MEAN CELL VOLUME 89.1 fl (80-96); MEAN PLT VOLUME 11.2 fl (7.5-11.1); MONO % 20.9 % (3.8-10.2); NEUT % 66.7 % (42.8-82.8); PLATELET COUNT 206 K/MM3 (134-434); RBC 2.81 M/mm3 (3.60-5.2); RDW 25.4 % (11.6-15.6)
[2020-07-05 11:48] LABS: ANISOCYTOSIS 3+; MACROCYTOSIS 2+; OVALOCYTE 1+
[2020-07-05] MEDS: SODIUM CHLORIDE 1,000 ML IV SCH (11:51)
[2020-07-05 15:03] LABS: EPITHELIAL CELLS FEW /hpf; URIC ACID CRYSTALS 1+ /hpf (NONE SEEN)
[2020-07-05] MEDS ORDERED: PT OWN MED DRAWER 7, Y5N ONE (20:34)
[2020-07-05] MEDS: DOCUSATE SODIUM 100 MG CAPSULE (FP) PO SCH (21:38)
[2020-07-06] MEDS: LEVOTHYROXINE NA 25 MCG TABLET (FP) PO SCH (06:03)
[2020-07-06] MEDS: oxyCODONE HCL 5 MG TABLET PO PRN (06:10)
[2020-07-06 08:36] LABS: CREATININE 1.4 mg/dl (0.55-1.3); MAGNESIUM 2.3 mg/dL (1.8-2.4); POTASSIUM 4.8 mmol/L (3.5-5.1)
[2020-07-06 08:40] LABS: BASO % 0.7 % (0-2.0); EOS % 0.3 % (0-4.5); HEMATOCRIT 25.4 % (32.4-45.2); HEMOGLOBIN 8.4 GM/dl (10.7-15.3); LYMPH % 8.8 % (8-40); MCH 29.3 pg (25.7-33.7); MEAN CELL VOLUME 88.7 fl (80-96); MEAN PLT VOLUME 12.5 fl (7.5-11.1); MONO % 14.4 % (3.8-10.2); NEUT % 75.8 % (42.8-82.8); PLATELET COUNT 267 K/MM3 (134-434); RBC 2.86 M/mm3 (3.60-5.2); WHITE BLOOD COUNT 7.3 K/mm3 (4.0-10.8)
[2020-07-06] MEDS: CALCIUM 250MG/VIT-D 125 UNITS 1 COMBO TABLET PO SCH ×2 (09:52→21:39)
[2020-07-06] MEDS: DOCUSATE SODIUM 100 MG CAPSULE (FP) PO SCH ×2 (09:52→21:39)
[2020-07-06] MEDS: MAGNESIUM OXIDE 400 MG TABLET (FP) PO SCH ×2 (09:52→21:39)
[2020-07-07] MEDS: LEVOTHYROXINE NA 25 MCG TABLET (FP) PO SCH (05:56)
[2020-07-07 07:47] LABS: BASO % 1.6 % (0-2.0); EOS % 0.4 % (0-4.5); HEMATOCRIT 25.5 % (32.4-45.2); HEMOGLOBIN 8.4 GM/dl (10.7-15.3); MCH 29.3 pg (25.7-33.7); MEAN CELL VOLUME 88.7 fl (80-96); MEAN PLT VOLUME 9.9 fl (7.5-11.1); PLATELET COUNT 191 K/MM3 (134-434); RBC 2.88 M/mm3 (3.60-5.2); RDW 24.5 % (11.6-15.6); WHITE BLOOD COUNT 6.7 K/mm3 (4.0-10.8)
[2020-07-07 08:03] LABS: ALBUMIN 3.1 g/dl (3.4-5.0); BILIRUBIN,TOTAL 1.1 mg/dl (0.2-1); CALCIUM 8.4 mg/dl (8.5-10); CREATININE 1.3 mg/dl (0.55-1.3); MAGNESIUM 2.2 mg/dL (1.8-2.4); POTASSIUM 4.7 mmol/L (3.5-5.1); TOT PROT 5.3 g/dl (6.4-8.2)
[2020-07-07 08:26] LABS: ACTIVATED PTT 23.8 SECONDS (25.2-36.5)
[2020-07-07 08:31] LABS: INR 1.21 (0.82-1.09); PROTHROMBIN TIME (PATIENT) 13.4 SEC (10.2-13.0)
[2020-07-07] MEDS ORDERED: PROPOFOL 20 ML ONE ×3 (10:10→12:22)
[2020-07-07] MEDS ORDERED: MIDAZOLAM HCL 2 MG/2 ML SINGLE DOSE VIAL ONE (10:10)
[2020-07-07] MEDS: MAGNESIUM OXIDE 400 MG TABLET (FP) PO SCH ×2 (10:13→21:18)
[2020-07-07] MEDS: DOCUSATE SODIUM 100 MG CAPSULE (FP) PO SCH ×2 (10:13→21:18)
[2020-07-07] MEDS: CALCIUM 250MG/VIT-D 125 UNITS 1 COMBO TABLET PO SCH ×2 (10:15→21:18)
[2020-07-07] MEDS ORDERED: ceFAZolin 2 GRAM PREMIX BAG IVPB ONE (11:40)
[2020-07-07] MEDS ORDERED: HYDROmorphone HCL/PF 1 MG/ML VIAL ONE (12:12)
[2020-07-07] MEDS ORDERED: LABETALOL HCL 5 MG/1 ML (100MG/20 ML VIAL) ONE (12:27)
[2020-07-07] MEDS ORDERED: VANCOMYCIN 1,000 MG VIAL (RESTRICTED TO ID ONLY) ONE (12:32)
[2020-07-07] MEDS ORDERED: TRANEXAMIC ACID 1000 MG/10 ML VIAL ONE ×2 (12:34→12:39)
[2020-07-07] MEDS ORDERED: LACTATED RINGERS SOLUTION 1,000 ML IV SCH ×2 (13:15→13:30)
[2020-07-07] MEDS ORDERED: ONDANSETRON 4 MG/2 ML VIAL IVPUSH PRN (13:27)
[2020-07-07] MEDS ORDERED: PROMETHAZINE HCL 25 MG/1 ML VIAL IVPB PRN (13:27)
[2020-07-07] MEDS ORDERED: HYDROmorphone HCL/PF 1 MG/ML VIAL IVPUSH PRN (13:27)
[2020-07-07] MEDS ORDERED: ACETAMINOPHEN INJECTION 100 ML IVPB ONE (13:30)
[2020-07-07] MEDS ORDERED: ACETAMINOPHEN 1000 MG/100 ML VIAL (NON FORMULARY) IVPB ONE (13:30)
[2020-07-07] MEDS ORDERED: ONDANSETRON 4 MG/2 ML VIAL ONE (13:34)
[2020-07-07] MEDS ORDERED: HYDROmorphone HCL 0.5 MG/0.5 ML SYRINGE ONE ×2 (13:34→13:57)
[2020-07-07] MEDS: oxyCODONE HCL 5 MG TABLET PO PRN (17:37)
[2020-07-07] MEDS: CEFAZOLIN 2 GM/D5W 2 GM/50 ML ML IVPB SCH (20:56)
[2020-07-08] MEDS: CEFAZOLIN 2 GM/D5W 2 GM/50 ML ML IVPB SCH (04:17)
[2020-07-08] MEDS: LEVOTHYROXINE NA 25 MCG TABLET (FP) PO SCH (06:25)
[2020-07-08 07:55] LABS: HEMATOCRIT 21.9 % (32.4-45.2); MCHC 31.8 g/dl (32.0-36.0); MEAN CELL VOLUME 88.2 fl (80-96); MEAN PLT VOLUME 9.2 fl (7.5-11.1); PLATELET COUNT 214 K/MM3 (134-434); RBC 2.49 M/mm3 (3.60-5.2); RDW 24.8 % (11.6-15.6); WHITE BLOOD COUNT 11.4 K/mm3 (4.0-10.8)
[2020-07-08 08:03] LABS: CREATININE 1.7 mg/dl (0.55-1.3); MAGNESIUM 2.2 mg/dL (1.8-2.4); POTASSIUM 4.9 mmol/L (3.5-5.1)
[2020-07-08] MEDS: oxyCODONE HCL 5 MG TABLET PO PRN ×3 (08:20→21:56)
[2020-07-08] MEDS: CALCIUM 250MG/VIT-D 125 UNITS 1 COMBO TABLET PO SCH ×2 (09:03→21:53)
[2020-07-08] MEDS: DOCUSATE SODIUM 100 MG CAPSULE (FP) PO SCH ×2 (09:03→21:53)
[2020-07-08] MEDS: MAGNESIUM OXIDE 400 MG TABLET (FP) PO SCH ×2 (09:03→21:53)
[2020-07-08] MEDS: ENOXAPARIN NA (PORCINE) 40 MG/0.4 ML DISP.SYRIN SQ SCH (09:04)
[2020-07-09] MEDS: LEVOTHYROXINE NA 25 MCG TABLET (FP) PO SCH (05:33)
[2020-07-09 07:38] LABS: HEMATOCRIT 23.8 % (32.4-45.2); HEMOGLOBIN 7.8 GM/dl (10.7-15.3); MCH 29.2 pg (25.7-33.7); MCHC 32.7 g/dl (32.0-36.0); MEAN CELL VOLUME 89.1 fl (80-96); MEAN PLT VOLUME 9.6 fl (7.5-11.1); PLATELET COUNT 222 K/MM3 (134-434); RBC 2.67 M/mm3 (3.60-5.2); WHITE BLOOD COUNT 10.4 K/mm3 (4.0-10.8)
[2020-07-09] MEDS: DOCUSATE SODIUM 100 MG CAPSULE (FP) PO SCH ×2 (10:10→21:14)
[2020-07-09] MEDS: CALCIUM 250MG/VIT-D 125 UNITS 1 COMBO TABLET PO SCH ×2 (10:10→21:14)
[2020-07-09] MEDS: ENOXAPARIN NA (PORCINE) 40 MG/0.4 ML DISP.SYRIN SQ SCH (10:10)
[2020-07-09] MEDS: MAGNESIUM OXIDE 400 MG TABLET (FP) PO SCH ×2 (10:10→21:14)
[2020-07-09] MEDS ORDERED: ACETAMINOPHEN 500 MG TABLET (FP) PO PRN (22:26)
[2020-07-09] MEDS ORDERED: traMADol HCL 50 MG TABLET PO PRN (22:26)
[2020-07-10] MEDS: LEVOTHYROXINE NA 25 MCG TABLET (FP) PO SCH (05:53)
[2020-07-10 07:42] LABS: BASO % 0.9 % (0-2.0); EOS % 0.6 % (0-4.5); HEMATOCRIT 23.6 % (32.4-45.2); HEMOGLOBIN 7.8 GM/dl (10.7-15.3); LYMPH % 9.9 % (8-40); MCH 28.8 pg (25.7-33.7); MCHC 32.9 g/dl (32.0-36.0); MEAN CELL VOLUME 87.7 fl (80-96); MEAN PLT VOLUME 11.7 fl (7.5-11.1); MONO % 16.5 % (3.8-10.2); NEUT % 72.1 % (42.8-82.8); PLATELET COUNT 266 K/MM3 (134-434); RBC 2.69 M/mm3 (3.60-5.2); RDW 20.5 % (11.6-15.6); WHITE BLOOD COUNT 9.3 K/mm3 (4.0-10.8)
[2020-07-10 07:59] LABS: ALBUMIN 2.6 g/dl (3.4-5.0); BILIRUBIN,TOTAL 0.9 mg/dl (0.2-1); CALCIUM 7.8 mg/dl (8.5-10); CREATININE 1.4 mg/dl (0.55-1.3); MAGNESIUM 2.1 mg/dL (1.8-2.4); POTASSIUM 4.3 mmol/L (3.5-5.1); TOT PROT 4.8 g/dl (6.4-8.2)
[2020-07-10] MEDS: DOCUSATE SODIUM 100 MG CAPSULE (FP) PO SCH (09:45)
[2020-07-10] MEDS: ENOXAPARIN NA (PORCINE) 40 MG/0.4 ML DISP.SYRIN SQ SCH (09:46)
[2020-07-10] MEDS: MAGNESIUM OXIDE 400 MG TABLET (FP) PO SCH (09:46)
[2020-07-10] MEDS: CALCIUM 250MG/VIT-D 125 UNITS 1 COMBO TABLET PO SCH (09:46)
[2020-07-10 14:01] VITALS: BP 121/45; PULSE 99; TEMP 99.4
== END 2020-07-10 14:50 | DRG 481 ==
LOC: FER 09:32 → FM/S 15:35
PROVIDERS: ADMIT Internal Medicine Geriatric Medicine; ATTEND Nurse Practitioner Acute Care
PROC: 0QS604Z Reposition Right Upper Femur with Internal Fixation Device, Open Approach (ICD-10-PCS; principal; 2020-07-07 11:30)
DX: S72.001A Fracture of unspecified part of neck of right femur, initial encounter for closed fracture (principal); M97.01XA Periprosthetic fracture around internal prosthetic right hip joint, initial encounter; N17.9 Acute kidney failure, unspecified; E03.9 Hypothyroidism, unspecified; F41.9 Anxiety disorder, unspecified; Z96.643 Presence of artificial hip joint, bilateral; D46.9 Myelodysplastic syndrome, unspecified; S02.2XXA Fracture of nasal bones, initial encounter for closed fracture; W17.89XA Other fall from one level to another, initial encounter; Y92.098 Other place in other non-institutional residence as the place of occurrence of the external cause
CPT/HCPCS: 36415; 36430; 70450-TC; 71045-TC-FY; 72125-TC; 72170-TC-FY; 73502-TC-RT-FY; 73523-TC-FY; 73552-TC-RT-FY; 80048; 80053; 80307; 81003; 81015; 83735; 85025; 85027; 85610; 85730; 86850; 86900; 86901; 86922; 93005; 97116-GP; 97163-GP; 99285-25; C9803; J0131; P9058; U0003

== ENCOUNTER 2020-09-10 13:15 | Inpatient (IN) | payer OTHER, MEDICARE ==
[2020-09-10] MEDS ORDERED: SODIUM CHLORIDE 1,000 ML IV STA (15:26)
[2020-09-10 16:13] LABS: BASO % 1.9 % (0-2.0); EOS % 0.3 % (0-4.5); HEMATOCRIT 29.5 % (32.4-45.2); HEMOGLOBIN 9.5 GM/dl (10.7-15.3); LYMPH % 13.8 % (8-40); MCH 26.2 pg (25.7-33.7); MCHC 32.4 g/dl (32.0-36.0); MONO % 10.1 % (3.8-10.2); NEUT % 73.9 % (42.8-82.8); PLATELET COUNT 257 K/MM3 (134-434); RBC 3.64 M/mm3 (3.60-5.2); RDW 23.8 % (11.6-15.6); WHITE BLOOD COUNT 13.1 K/mm3 (4.0-10.8)
[2020-09-10 16:20] LABS: ALBUMIN 4.2 g/dl (3.4-5.0); ALK PHOS 112 U/L (45-117); ANION GAP 12 MMOL/L (8-16); BILIRUBIN,TOTAL 0.8 mg/dl (0.2-1); CALCIUM 8.4 mg/dl (8.5-10); CHLORIDE 105 mmol/L (98-107); CO2 18 mmol/L (21-32); CREATININE 3.7 mg/dl (0.55-1.3); GLUCOSE,RANDOM 89 mg/dl (74-106); PHOSPHOROUS 5.8 mg/dl (2.5-4.9); POTASSIUM 5.9 mmol/L (3.5-5.1); SGOT/AST 6 U/L (15-37); SGPT/ALT 7 U/L (13-61); SODIUM 135 mmol/L (136-145); TOT PROT 6.8 g/dl (6.4-8.2)
[2020-09-10 16:45] LABS: ACTIVATED PTT 27.2 SECONDS (25.2-36.5)
[2020-09-10 16:49] LABS: INR 1.24 (0.82-1.09); PROTHROMBIN TIME (PATIENT) 13.7 SEC (10.2-13.0)
[2020-09-10 17:39] LABS: N-TERMINAL BNP 3424.9 pg/ml (5-450)
[2020-09-10 18:54] LABS: ADD RBC MORPHOLOGY YES
[2020-09-10 18:55] LABS: OVALOCYTE 1+; PLATELET ESTIMATE ADEQUATE
[2020-09-10 18:56] LABS: TEAR DROP CELLS 2+
[2020-09-10 18:57] LABS: ANISOCYTOSIS 2+; MACROCYTOSIS 1+
[2020-09-10 19:27] LABS: EPITHELIAL CELLS MODERATE /hpf
[2020-09-10 23:19] VITALS: BMI 18.1
[2020-09-11] MEDS ORDERED: CEFTRIAXONE 1 GM in DEXTROSE 5%-WATER - 50 ML IVPB ONE (01:26)
[2020-09-11] MEDS ORDERED: MORPHINE SULFATE 2 MG/ML VIAL IVPUSH ONE (01:27)
[2020-09-11] MEDS ORDERED: SODIUM CHLORIDE 1,000 ML IV SCH ×2 (01:30→08:53)
[2020-09-11] MEDS ORDERED: ACETAMINOPHEN 325 MG TABLET (FP) PO PRN (01:31)
[2020-09-11] MEDS ORDERED: ZOLPIDEM TARTRATE 5 MG TABLET PO PRN ×2 (01:37→15:39)
[2020-09-11] MEDS ORDERED: cefTRIAXone SODIUM 1 GM VIAL ONE (01:54)
[2020-09-11] MEDS ORDERED: DEXTROSE 5%-WATER - 50 ML IVPB ONE (01:54)
[2020-09-11] MEDS ORDERED: MORPHINE SULFATE 2 MG/ML VIAL IVPUSH PRN (06:00)
[2020-09-11] MEDS ORDERED: LEVOTHYROXINE NA 25 MCG TABLET (FP) PO SCH (07:00)
[2020-09-11 08:16] LABS: BASO % 0.5 % (0-2.0); EOS % 1.1 % (0-4.5); HEMATOCRIT 25.7 % (32.4-45.2); HEMOGLOBIN 8.4 GM/dl (10.7-15.3); LYMPH % 18.2 % (8-40); MCH 26.4 pg (25.7-33.7); MCHC 32.6 g/dl (32.0-36.0); MEAN PLT VOLUME 11.3 fl (7.5-11.1); NEUT % 63.2 % (42.8-82.8); PLATELET COUNT 302 K/MM3 (134-434); RBC 3.17 M/mm3 (3.60-5.2); RDW 23.4 % (11.6-15.6); WHITE BLOOD COUNT 9.6 K/mm3 (4.0-10.8)
[2020-09-11 08:19] LABS: ALBUMIN 3.3 g/dl (3.4-5.0); BILIRUBIN,TOTAL 0.5 mg/dl (0.2-1); CALCIUM 7.9 mg/dl (8.5-10); CREATININE 3.8 mg/dl (0.55-1.3); POTASSIUM 5.3 mmol/L (3.5-5.1); TOT PROT 5.2 g/dl (6.4-8.2)
[2020-09-11] MEDS ORDERED: TAMSULOSIN HCL 0.4 MG CAP PO SCH (08:30)
[2020-09-11] MEDS: SODIUM CHLORIDE 1,000 ML IV SCH (18:12)
[2020-09-11] MEDS: MORPHINE SULFATE 2 MG/ML VIAL IVPUSH PRN (18:26)
[2020-09-12] MEDS: MORPHINE SULFATE 2 MG/ML VIAL IVPUSH PRN ×4 (03:37→20:20)
[2020-09-12] MEDS: LEVOTHYROXINE NA 25 MCG TABLET (FP) PO SCH (07:04)
[2020-09-12] MEDS ORDERED: TAMSULOSIN HCL 0.4 MG CAP PO SCH (08:30)
[2020-09-12 08:47] LABS: EOS % 2.2 % (0-4.5); HEMATOCRIT 26.4 % (32.4-45.2); HEMOGLOBIN 8.4 GM/dL (10.7-15.3); LYMPH % 30.7 % (8-40); MCH 26.1 pg (25.7-33.7); MCHC 31.9 g/dl (32.0-36.0); MEAN CELL VOLUME 81.9 fl (80-96); MEAN PLT VOLUME 11.1 fl (7.5-11.1); MONO % 17.9 % (3.8-10.2); NEUT % 48.2 % (42.8-82.8); PLATELET COUNT 261 K/MM3 (134-434); RBC 3.22 M/mm3 (3.60-5.2); RDW 24.5 % (11.6-15.6); WHITE BLOOD COUNT 6.5 K/mm3 (4.0-10.0)
[2020-09-12 09:07] LABS: CHLORIDE 115 mmol/L (98-107); POTASSIUM 5.3 mmol/L (3.5-5.1); SODIUM 141 mmol/L (136-145)
[2020-09-12 09:13] LABS: CALCIUM 7.8 mg/dL (8.5-10.1)
[2020-09-12 09:14] LABS: ANION GAP 7 MMOL/L (8-16); BLOOD UREA NITROGEN 53.3 mg/dL (7-18); CO2 19 mmol/L (21-32); GLUCOSE,RANDOM 86 mg/dL (74-106); MAGNESIUM 2.1 mg/dL (1.8-2.4)
[2020-09-12 09:17] LABS: PHOSPHOROUS 6.1 mg/dL (2.5-4.9); SGPT/ALT 7 U/L (13-61)
[2020-09-12 09:18] LABS: BILIRUBIN,TOTAL 0.3 mg/dL (0.2-1); TOT PROT 5.3 g/dl (6.4-8.2)
[2020-09-12 09:20] LABS: ALBUMIN 2.9 g/dl (3.4-5.0); ALK PHOS 97 U/L (45-117); SGOT/AST < 3 U/L (15-37)
[2020-09-12] MEDS ORDERED: cefTRIAXone SODIUM 1 GM VIAL ONE (09:21)
[2020-09-12] MEDS ORDERED: DEXTROSE 5%-WATER - 50 ML IVPB ONE (09:21)
[2020-09-12] MEDS: SODIUM CHLORIDE 1,000 ML IV SCH (09:38)
[2020-09-12] MEDS: THIAMINE HCL 100 MG TABLET (FP) PO SCH (09:39)
[2020-09-12] MEDS: CALCIUM 500MG/VIT-D 200 UNITS COMBO TABLET (FP) PO SCH (09:39)
[2020-09-12] MEDS: CEFTRIAXONE 1 GM in DEXTROSE 5%-WATER - 50 ML IVPB SCH (09:39)
[2020-09-12] MEDS ORDERED: PATIENT'S OWN MEDICATION (NON-FORMULARY) (Calcium Carbonate/Vitamin D3 [Calcium 500-Vit D3 PO SCH (10:00)
[2020-09-12] MEDS ORDERED: PATIENT'S OWN MEDICATION (NON-FORMULARY) (Thiamine Mononitrate [Vitamin B-1] 100 MG Tablet PO SCH (10:00)
[2020-09-12] MEDS ORDERED: CEFTRIAXONE 1 GM in DEXTROSE 5%-WATER - 50 ML IVPB SCH (10:00)
[2020-09-12] MEDS ORDERED: SODIUM CHLORIDE 0.45% 1,000 ML with SODIUM BICARBONATE 8.4% - 75 MEQ IV SCH (17:15)
[2020-09-12] MEDS: SODIUM CHLORIDE 0.45% 1,000 ML with SODIUM BICARBONATE 8.4% - 75 MEQ IV SCH (20:08)
[2020-09-12] MEDS: TAMSULOSIN HCL 0.4 MG CAP PO SCH (21:39)
[2020-09-12] MEDS: ACETAMINOPHEN 325 MG TABLET (FP) PO PRN (23:42)
[2020-09-13] MEDS: LEVOTHYROXINE NA 25 MCG TABLET (FP) PO SCH (06:38)
[2020-09-13 09:38] LABS: BASO % 1.4 % (0-2.0); EOS % 2.9 % (0-4.5); HEMATOCRIT 28.1 % (32.4-45.2); LYMPH % 32.3 % (8-40); MCH 25.9 pg (25.7-33.7); MONO % 12.8 % (3.8-10.2); NEUT % 50.6 % (42.8-82.8); PLATELET COUNT 284 K/MM3 (134-434); RBC 3.47 M/mm3 (3.60-5.2); RDW 24.8 % (11.6-15.6); WHITE BLOOD COUNT 5.2 K/mm3 (4.0-10.0)
[2020-09-13] MEDS ORDERED: cefTRIAXone SODIUM 1 GM VIAL ONE (09:43)
[2020-09-13] MEDS ORDERED: DEXTROSE 5%-WATER - 50 ML IVPB ONE (09:44)
[2020-09-13 10:05] LABS: POTASSIUM 5.5 mmol/L (3.5-5.1)
[2020-09-13 10:13] LABS: CALCIUM 8.3 mg/dL (8.5-10.1)
[2020-09-13] MEDS: TAMSULOSIN HCL 0.4 MG CAP PO SCH ×2 (10:13→21:06)
[2020-09-13] MEDS: THIAMINE HCL 100 MG TABLET (FP) PO SCH (10:13)
[2020-09-13] MEDS: CEFTRIAXONE 1 GM in DEXTROSE 5%-WATER - 50 ML IVPB SCH (10:13)
[2020-09-13] MEDS: CALCIUM 500MG/VIT-D 200 UNITS COMBO TABLET (FP) PO SCH (10:13)
[2020-09-13 10:14] LABS: ALBUMIN 3.2 g/dl (3.4-5.0)
[2020-09-13] MEDS: ACETAMINOPHEN 325 MG TABLET (FP) PO PRN ×2 (10:14→22:41)
[2020-09-13 10:15] LABS: MAGNESIUM 1.8 mg/dL (1.8-2.4)
[2020-09-13 10:17] LABS: CREATININE 3.7 mg/dL (0.55-1.3); PHOSPHOROUS 5.4 mg/dL (2.5-4.9)
[2020-09-13 10:18] LABS: TOT PROT 5.7 g/dl (6.4-8.2)
[2020-09-13 10:20] LABS: BILIRUBIN,TOTAL 0.5 mg/dL (0.2-1)
[2020-09-13] MEDS: MORPHINE SULFATE 2 MG/ML VIAL IVPUSH PRN ×2 (11:34→18:36)
[2020-09-13] MEDS ORDERED: SODIUM ZIRCONIUM CYCLOSILICATE (LOKELMA) 5 GM PACKET PO ONE (12:00)
[2020-09-13 12:12] LABS: ANISOCYTOSIS 2+; MACROCYTOSIS 0; OVALOCYTE 1+; PLATELET ESTIMATE NORMAL; ROULEAU 1+
[2020-09-13] MEDS: SODIUM CHLORIDE 0.45% 1,000 ML with SODIUM BICARBONATE 8.4% - 75 MEQ IV SCH ×2 (13:00→18:36)
[2020-09-13] MEDS ORDERED: PT OWN MED DRAWER 7, Y5N ONE (14:04)
[2020-09-13] MEDS: HEPARIN NA (PORCINE) 5,000 UNITS/ML 1ML VIAL SQ SCH ×3 (14:21→21:12)
[2020-09-14] MEDS: SODIUM CHLORIDE 0.45% 1,000 ML with SODIUM BICARBONATE 8.4% - 75 MEQ IV SCH (01:49)
[2020-09-14] MEDS: LEVOTHYROXINE NA 25 MCG TABLET (FP) PO SCH (06:00)
[2020-09-14] MEDS: HEPARIN NA (PORCINE) 5,000 UNITS/ML 1ML VIAL SQ SCH ×3 (06:01→22:41)
[2020-09-14] MEDS: MORPHINE SULFATE 2 MG/ML VIAL IVPUSH PRN (08:32)
[2020-09-14 09:42] LABS: BASO % 1.4 % (0-2.0); EOS % 3.6 % (0-4.5); HEMATOCRIT 26.3 % (32.4-45.2); HEMOGLOBIN 8.3 GM/dL (10.7-15.3); LYMPH % 25.4 % (8-40); MCH 25.5 pg (25.7-33.7); MCHC 31.5 g/dl (32.0-36.0); MEAN PLT VOLUME 11.3 fl (7.5-11.1); MONO % 11.2 % (3.8-10.2); NEUT % 58.4 % (42.8-82.8); PLATELET COUNT 238 K/MM3 (134-434); RBC 3.24 M/mm3 (3.60-5.2); RDW 24.6 % (11.6-15.6); WHITE BLOOD COUNT 5.3 K/mm3 (4.0-10.0)
[2020-09-14 09:50] LABS: INR 1.09 (0.83-1.09); PROTHROMBIN TIME (PATIENT) 13.1 SEC (9.7-13.0)
[2020-09-14] MEDS ORDERED: amLODIPine BESYLATE 5 MG TABLET (FP) PO SCH (10:00)
[2020-09-14 10:09] LABS: CHLORIDE 112 mmol/L (98-107); POTASSIUM 5.1 mmol/L (3.5-5.1); SODIUM 144 mmol/L (136-145)
[2020-09-14] MEDS: CALCIUM 500MG/VIT-D 200 UNITS COMBO TABLET (FP) PO SCH (10:15)
[2020-09-14] MEDS: THIAMINE HCL 100 MG TABLET (FP) PO SCH (10:15)
[2020-09-14] MEDS ORDERED: cefTRIAXone SODIUM 1 GM VIAL ONE (10:19)
[2020-09-14] MEDS ORDERED: DEXTROSE 5%-WATER - 50 ML IVPB ONE (10:19)
[2020-09-14] MEDS: TAMSULOSIN HCL 0.4 MG CAP PO SCH ×2 (10:21→22:41)
[2020-09-14] MEDS: CEFTRIAXONE 1 GM in DEXTROSE 5%-WATER - 50 ML IVPB SCH (10:21)
[2020-09-14 10:28] LABS: ALBUMIN 3.2 g/dl (3.4-5.0); ANION GAP 7 MMOL/L (8-16); BLOOD UREA NITROGEN 51.6 mg/dL (7-18); CALCIUM 7.9 mg/dL (8.5-10.1); CO2 25 mmol/L (21-32); GLUCOSE,RANDOM 92 mg/dL (74-106)
[2020-09-14 10:30] LABS: CREATININE 3.5 mg/dL (0.55-1.3); PHOSPHOROUS 5.2 mg/dL (2.5-4.9); SGPT/ALT 6 U/L (13-61)
[2020-09-14 10:32] LABS: BILIRUBIN,TOTAL 0.3 mg/dL (0.2-1); TOT PROT 5.6 g/dl (6.4-8.2)
[2020-09-14 10:33] LABS: ALK PHOS 96 U/L (45-117)
[2020-09-14 10:34] LABS: SGOT/AST < 3 U/L (15-37)
[2020-09-14 10:37] LABS: MAGNESIUM 1.7 mg/dL (1.8-2.4)
[2020-09-14 11:08] LABS: ANISOCYTOSIS 1+; MACROCYTOSIS 1+; OVALOCYTE 1+; PLATELET ESTIMATE NORMAL
[2020-09-14] MEDS: ACETAMINOPHEN 325 MG TABLET (FP) PO PRN (11:21)
[2020-09-14] MEDS ORDERED: ceFAZolin SODIUM 1 GM VIAL IVPB ONE (13:50)
[2020-09-14] MEDS ORDERED: IOHEXOL 300 MG/ML INFUS..BTL IJ ONE (14:06)
[2020-09-14] MEDS ORDERED: SODIUM CHLORIDE 0.45% 1,000 ML IV SCH ×2 (14:30)
[2020-09-14] MEDS ORDERED: PROPOFOL 20 ML ONE ×2 (15:33)
[2020-09-14] MEDS ORDERED: ACETAMINOPHEN 1000 MG/100 ML VIAL (NON FORMULARY) IVPB ONE ×2 (15:38→17:17)
[2020-09-14] MEDS ORDERED: ACETAMINOPHEN INJECTION 100 ML IVPB ONE (15:38)
[2020-09-14] MEDS ORDERED: MORPHINE SULFATE 2 MG/ML VIAL IVPUSH PRN (15:45)
[2020-09-14] MEDS ORDERED: KETOROLAC TROMETHAMINE 30 MG/1 ML VIAL IVPUSH ONE (16:15)
[2020-09-14] MEDS ORDERED: ACETAMINOPHEN 325 MG TABLET (FP) PO PRN (16:15)
[2020-09-14] MEDS ORDERED: HYDROmorphone HCl 2 MG/ML VIAL IM ONE (16:15)
[2020-09-14] MEDS ORDERED: MIDAZOLAM HCL 2 MG/2 ML SINGLE DOSE VIAL ONE (16:29)
[2020-09-14] MEDS ORDERED: MIDAZOLAM HCL 2 MG/2 ML SINGLE DOSE VIAL IVPUSH ONE ×2 (16:35→17:03)
[2020-09-14 17:04] LABS: BASO % 1.2 % (0-2.0); EOS % 0.6 % (0-4.5); HEMATOCRIT 29.7 % (32.4-45.2); HEMOGLOBIN 9.4 GM/dL (10.7-15.3); LYMPH % 10.8 % (8-40); MCH 25.4 pg (25.7-33.7); MCHC 31.4 g/dl (32.0-36.0); MEAN CELL VOLUME 80.7 fl (80-96); MONO % 1.6 % (3.8-10.2); NEUT % 85.8 % (42.8-82.8); PLATELET COUNT 281 K/MM3 (134-434); RBC 3.68 M/mm3 (3.60-5.2); RDW 25.3 % (11.6-15.6); WHITE BLOOD COUNT 10.5 K/mm3 (4.0-10.0)
[2020-09-14] MEDS ORDERED: MIDAZOLAM HCL 2 MG/2 ML SINGLE DOSE VIAL IVPUSH PRN (17:15)
[2020-09-14 17:19] LABS: CHLORIDE 109 mmol/L (98-107); POTASSIUM 4.9 mmol/L (3.5-5.1); SODIUM 138 mmol/L (136-145)
[2020-09-14 17:21] LABS: CALCIUM 8.2 mg/dL (8.5-10.1)
[2020-09-14 17:22] LABS: ALBUMIN 3.4 g/dl (3.4-5.0); ANION GAP 7 MMOL/L (8-16); BLOOD UREA NITROGEN 45.1 mg/dL (7-18); CO2 22 mmol/L (21-32); GLUCOSE,RANDOM 184 mg/dL (74-106)
[2020-09-14 17:24] LABS: CREATININE 3.3 mg/dL (0.55-1.3); SGOT/AST < 3 U/L (15-37); SGPT/ALT 6 U/L (13-61)
[2020-09-14 17:27] LABS: ALK PHOS 99 U/L (45-117); BILIRUBIN,TOTAL 0.3 mg/dL (0.2-1)
[2020-09-14] MEDS: oxyCODONE HCL 5 MG TABLET PO PRN ×2 (18:11→23:25)
[2020-09-14 18:30] LABS: ANISOCYTOSIS 1+; MACROCYTOSIS 0; OVALOCYTE 0; PLATELET ESTIMATE NORMAL; TARGET CELLS 1+; TEAR DROP CELLS 1+
[2020-09-14] MEDS: SODIUM CHLORIDE 0.45% 1,000 ML IV SCH (18:41)
[2020-09-15] MEDS: ZOLPIDEM TARTRATE 5 MG TABLET PO PRN ×2 (02:41→23:33)
[2020-09-15] MEDS: oxyCODONE HCL 5 MG TABLET PO PRN ×2 (04:27→08:47)
[2020-09-15] MEDS: LEVOTHYROXINE NA 25 MCG TABLET (FP) PO SCH (06:21)
[2020-09-15] MEDS: HEPARIN NA (PORCINE) 5,000 UNITS/ML 1ML VIAL SQ SCH ×3 (06:22→23:24)
[2020-09-15] MEDS: SODIUM CHLORIDE 0.45% 1,000 ML IV SCH (07:12)
[2020-09-15 08:42] LABS: BASO % 0.3 % (0-2.0); EOS % 0.1 % (0-4.5); HEMATOCRIT 28.6 % (32.4-45.2); LYMPH % 7.3 % (8-40); MCH 25.4 pg (25.7-33.7); MCHC 31.4 g/dl (32.0-36.0); MEAN CELL VOLUME 80.7 fl (80-96); MEAN PLT VOLUME 10.7 fl (7.5-11.1); MONO % 12.2 % (3.8-10.2); NEUT % 80.1 % (42.8-82.8); PLATELET COUNT 312 K/MM3 (134-434); RBC 3.54 M/mm3 (3.60-5.2); RDW 25.1 % (11.6-15.6); WHITE BLOOD COUNT 15.9 K/mm3 (4.0-10.0)
[2020-09-15] MEDS: TAMSULOSIN HCL 0.4 MG CAP PO SCH ×2 (08:49→23:24)
[2020-09-15 09:07] LABS: CHLORIDE 105 mmol/L (98-107); SODIUM 135 mmol/L (136-145)
[2020-09-15 09:14] LABS: ANION GAP 8 MMOL/L (8-16); BLOOD UREA NITROGEN 49.6 mg/dL (7-18); CALCIUM 8.3 mg/dL (8.5-10.1); CO2 22 mmol/L (21-32); GLUCOSE,RANDOM 122 mg/dL (74-106); MAGNESIUM 1.6 mg/dL (1.8-2.4)
[2020-09-15 09:15] LABS: ALBUMIN 3.6 g/dl (3.4-5.0)
[2020-09-15 09:18] LABS: CREATININE 3.6 mg/dL (0.55-1.3); PHOSPHOROUS 4.7 mg/dL (2.5-4.9); SGOT/AST < 3 U/L (15-37); SGPT/ALT 8 U/L (13-61)
[2020-09-15 09:19] LABS: BILIRUBIN,TOTAL 0.4 mg/dL (0.2-1); TOT PROT 6.1 g/dl (6.4-8.2)
[2020-09-15 09:20] LABS: ALK PHOS 100 U/L (45-117)
[2020-09-15] MEDS ORDERED: DEXTROSE 5%-WATER - 50 ML IVPB ONE (09:21)
[2020-09-15] MEDS ORDERED: cefTRIAXone SODIUM 1 GM VIAL ONE (09:21)
[2020-09-15] MEDS: THIAMINE HCL 100 MG TABLET (FP) PO SCH (09:30)
[2020-09-15] MEDS: CALCIUM 500MG/VIT-D 200 UNITS COMBO TABLET (FP) PO SCH (09:30)
[2020-09-15] MEDS ORDERED: CEFTRIAXONE 1 GM in DEXTROSE 5%-WATER - 50 ML IVPB SCH (10:00)
[2020-09-15] MEDS ORDERED: amLODIPine BESYLATE 5 MG TABLET (FP) PO SCH (10:00)
[2020-09-15 10:03] LABS: ANISOCYTOSIS 1+; MACROCYTOSIS 0; OVALOCYTE 1+; PLATELET ESTIMATE NORMAL; TARGET CELLS 1+
[2020-09-15] MEDS ORDERED: ALPRAZolam 1 MG TABLET PO ONE (11:05)
[2020-09-15] MEDS: ACETAMINOPHEN 325 MG TABLET (FP) PO PRN (11:54)
[2020-09-15] MEDS ORDERED: MAGNESIUM SULF 50% (8.12 MEQ/2 ML-1 GM VIAL) IVPB ONE (11:56)
[2020-09-15] MEDS: PHENAZOPYRIDINE HCL 100 MG TABLET (FP) PO SCH ×2 (15:26→18:24)
[2020-09-16] MEDS ORDERED: DEXTROSE 5%-WATER - 50 ML IVPB ONE ×3 (02:43→17:21)
[2020-09-16] MEDS ORDERED: PIPERACILLIN/TAZOBACTAM 2.25 GM VIAL IVPB ONE ×3 (02:43→17:21)
[2020-09-16] MEDS: PIPERACILLIN/TAZOB 2.25 GM 2.25 GM in DEXTROSE 5%-WATER - 50 ML IVPB SCH ×3 (02:47→18:26)
[2020-09-16] MEDS: SODIUM CHLORIDE 0.45% 1,000 ML IV SCH (04:31)
[2020-09-16] MEDS: LEVOTHYROXINE NA 25 MCG TABLET (FP) PO SCH (07:02)
[2020-09-16] MEDS: HEPARIN NA (PORCINE) 5,000 UNITS/ML 1ML VIAL SQ SCH ×3 (07:02→21:35)
[2020-09-16] MEDS ORDERED: PT OWN MED DRAWER 7, Y5N ONE (08:39)
[2020-09-16 08:42] LABS: BASO % 0.3 % (0-2.0); HEMATOCRIT 23.8 % (32.4-45.2); HEMOGLOBIN 7.7 GM/dL (10.7-15.3); LYMPH % 4.8 % (8-40); MCH 25.6 pg (25.7-33.7); MCHC 32.5 g/dl (32.0-36.0); MEAN CELL VOLUME 78.8 fl (80-96); MEAN PLT VOLUME 10.8 fl (7.5-11.1); MONO % 14.6 % (3.8-10.2); NEUT % 80.3 % (42.8-82.8); PLATELET COUNT 294 K/MM3 (134-434); RBC 3.01 M/mm3 (3.60-5.2); RDW 25.9 % (11.6-15.6); WHITE BLOOD COUNT 26.8 K/mm3 (4.0-10.0)
[2020-09-16] MEDS: PHENAZOPYRIDINE HCL 100 MG TABLET (FP) PO SCH ×3 (08:47→18:27)
[2020-09-16] MEDS: TAMSULOSIN HCL 0.4 MG CAP PO SCH ×2 (08:47→21:35)
[2020-09-16 09:16] LABS: CHLORIDE 101 mmol/L (98-107); POTASSIUM 5.1 mmol/L (3.5-5.1); SODIUM 131 mmol/L (136-145)
[2020-09-16 09:25] LABS: ALBUMIN 2.9 g/dl (3.4-5.0); ANION GAP 8 MMOL/L (8-16); BLOOD UREA NITROGEN 49.7 mg/dL (7-18); CO2 21 mmol/L (21-32); GLUCOSE,RANDOM 92 mg/dL (74-106); MAGNESIUM 1.9 mg/dL (1.8-2.4)
[2020-09-16 09:27] LABS: SGPT/ALT < 6 U/L (13-61)
[2020-09-16 09:28] LABS: CREATININE 3.5 mg/dL (0.55-1.3); SGOT/AST 3 U/L (15-37)
[2020-09-16 09:30] LABS: ALK PHOS 97 U/L (45-117); BILIRUBIN,TOTAL 0.4 mg/dL (0.2-1); TOT PROT 5.3 g/dl (6.4-8.2)
[2020-09-16] MEDS: CALCIUM 500MG/VIT-D 200 UNITS COMBO TABLET (FP) PO SCH (10:15)
[2020-09-16] MEDS: THIAMINE HCL 100 MG TABLET (FP) PO SCH (10:15)
[2020-09-16] MEDS: amLODIPine BESYLATE 10 MG TABLET (FP) PO SCH (10:16)
[2020-09-16 10:44] LABS: ANISOCYTOSIS 1+; MACROCYTOSIS 0; PLATELET ESTIMATE NORMAL; TEAR DROP CELLS 1+
[2020-09-16] MEDS: ACETAMINOPHEN 325 MG TABLET (FP) PO PRN (12:37)
[2020-09-16] MEDS: SODIUM CHLORIDE 1,000 ML IV SCH (12:43)
[2020-09-16] MEDS ORDERED: LORazepam 2 MG/ML SDV VIAL IVPUSH ONE (13:34)
[2020-09-16] MEDS: ZOLPIDEM TARTRATE 5 MG TABLET PO PRN (21:35)
[2020-09-17] MEDS ORDERED: PIPERACILLIN/TAZOBACTAM 2.25 GM VIAL IVPB ONE ×3 (01:15→16:48)
[2020-09-17] MEDS ORDERED: DEXTROSE 5%-WATER - 50 ML IVPB ONE ×3 (01:16→16:48)
[2020-09-17] MEDS: PIPERACILLIN/TAZOB 2.25 GM 2.25 GM in DEXTROSE 5%-WATER - 50 ML IVPB SCH ×3 (02:25→17:52)
[2020-09-17] MEDS: HEPARIN NA (PORCINE) 5,000 UNITS/ML 1ML VIAL SQ SCH ×3 (06:25→21:16)
[2020-09-17] MEDS: LEVOTHYROXINE NA 25 MCG TABLET (FP) PO SCH (06:26)
[2020-09-17] MEDS: TAMSULOSIN HCL 0.4 MG CAP PO SCH ×2 (08:31→21:16)
[2020-09-17] MEDS ORDERED: PT OWN MED DRAWER 7, Y5N ONE (08:52)
[2020-09-17] MEDS ORDERED: ALPRAZolam 0.25 MG TABLET PO ONE (09:06)
[2020-09-17 09:26] LABS: BASO % 0.2 % (0-2.0); EOS % 0.1 % (0-4.5); HEMATOCRIT 22.2 % (32.4-45.2); HEMOGLOBIN 7.2 GM/dL (10.7-15.3); LYMPH % 6.2 % (8-40); MCH 25.5 pg (25.7-33.7); MCHC 32.3 g/dl (32.0-36.0); MEAN CELL VOLUME 78.8 fl (80-96); MEAN PLT VOLUME 10.9 fl (7.5-11.1); MONO % 13.9 % (3.8-10.2); NEUT % 79.6 % (42.8-82.8); PLATELET COUNT 263 K/MM3 (134-434); RBC 2.82 M/mm3 (3.60-5.2); RDW 25.7 % (11.6-15.6); WHITE BLOOD COUNT 16.2 K/mm3 (4.0-10.0)
[2020-09-17 09:30] LABS: CHLORIDE 104 mmol/L (98-107); POTASSIUM 4.7 mmol/L (3.5-5.1); SODIUM 137 mmol/L (136-145)
[2020-09-17 09:38] LABS: ALBUMIN 2.8 g/dl (3.4-5.0)
[2020-09-17 09:39] LABS: CALCIUM 8.1 mg/dL (8.5-10.1)
[2020-09-17 09:40] LABS: ANION GAP 9 MMOL/L (8-16); CO2 24 mmol/L (21-32); GLUCOSE,RANDOM 81 mg/dL (74-106)
[2020-09-17 09:41] LABS: CREATININE 3.5 mg/dL (0.55-1.3); PHOSPHOROUS 4.4 mg/dL (2.5-4.9); SGOT/AST 6 U/L (15-37)
[2020-09-17 09:42] LABS: BILIRUBIN,TOTAL 1.2 mg/dL (0.2-1)
[2020-09-17 09:43] LABS: ALK PHOS 100 U/L (45-117); TOT PROT 5.4 g/dl (6.4-8.2)
[2020-09-17 09:44] LABS: SGPT/ALT < 6 U/L (13-61)
[2020-09-17 10:59] LABS: ANISOCYTOSIS 3+; MACROCYTOSIS 0; PLATELET ESTIMATE NORMAL; TARGET CELLS 2+
[2020-09-17] MEDS: PHENAZOPYRIDINE HCL 100 MG TABLET (FP) PO SCH ×3 (10:59→18:35)
[2020-09-17] MEDS: VITAMIN B COMP W-C 1 EA TABLET (NEPHRO-VITE) PO SCH (10:59)
[2020-09-17] MEDS: THIAMINE HCL 100 MG TABLET (FP) PO SCH (10:59)
[2020-09-17] MEDS: CALCIUM 500MG/VIT-D 200 UNITS COMBO TABLET (FP) PO SCH (10:59)
[2020-09-17] MEDS: amLODIPine BESYLATE 10 MG TABLET (FP) PO SCH (11:00)
[2020-09-17] MEDS: SODIUM CHLORIDE 1,000 ML IV SCH (14:14)
[2020-09-17] MEDS: ZOLPIDEM TARTRATE 5 MG TABLET PO PRN (21:16)
[2020-09-17] MEDS: LACTOBACILLUS ACIDOPHILUS 1 TABLET PO SCH (21:58)
[2020-09-18] MEDS ORDERED: PIPERACILLIN/TAZOBACTAM 2.25 GM VIAL IVPB ONE ×3 (02:35→19:03)
[2020-09-18] MEDS ORDERED: DEXTROSE 5%-WATER - 50 ML IVPB ONE ×3 (02:35→19:03)
[2020-09-18] MEDS: PIPERACILLIN/TAZOB 2.25 GM 2.25 GM in DEXTROSE 5%-WATER - 50 ML IVPB SCH ×3 (02:37→19:11)
[2020-09-18] MEDS: ALPRAZolam 0.25 MG TABLET PO PRN (03:40)
[2020-09-18] MEDS: LEVOTHYROXINE NA 25 MCG TABLET (FP) PO SCH (06:42)
[2020-09-18] MEDS: HEPARIN NA (PORCINE) 5,000 UNITS/ML 1ML VIAL SQ SCH (06:42)
[2020-09-18] MEDS ORDERED: PT OWN MED DRAWER 7, Y5N ONE ×2 (09:20→13:44)
[2020-09-18 09:21] LABS: CHLORIDE 107 mmol/L (98-107); POTASSIUM 4.4 mmol/L (3.5-5.1); SODIUM 137 mmol/L (136-145)
[2020-09-18 09:23] LABS: EOS % 1.3 % (0-4.5); HEMATOCRIT 20.2 % (32.4-45.2); LYMPH % 12.5 % (8-40); MCH 25.2 pg (25.7-33.7); MCHC 31.6 g/dl (32.0-36.0); MEAN CELL VOLUME 79.7 fl (80-96); MEAN PLT VOLUME 11.3 fl (7.5-11.1); MONO % 11.5 % (3.8-10.2); NEUT % 73.7 % (42.8-82.8); PLATELET COUNT 253 K/MM3 (134-434); RBC 2.54 M/mm3 (3.60-5.2); RDW 25.9 % (11.6-15.6); WHITE BLOOD COUNT 8.8 K/mm3 (4.0-10.0)
[2020-09-18] MEDS: TAMSULOSIN HCL 0.4 MG CAP PO SCH ×2 (09:24→22:05)
[2020-09-18] MEDS: PHENAZOPYRIDINE HCL 100 MG TABLET (FP) PO SCH ×3 (09:25→19:01)
[2020-09-18] MEDS: THIAMINE HCL 100 MG TABLET (FP) PO SCH (09:25)
[2020-09-18] MEDS: LACTOBACILLUS ACIDOPHILUS 1 TABLET PO SCH (09:25)
[2020-09-18] MEDS: VITAMIN B COMP W-C 1 EA TABLET (NEPHRO-VITE) PO SCH (09:26)
[2020-09-18] MEDS: CALCIUM 500MG/VIT-D 200 UNITS COMBO TABLET (FP) PO SCH (09:26)
[2020-09-18] MEDS: amLODIPine BESYLATE 10 MG TABLET (FP) PO SCH (09:26)
[2020-09-18 09:28] LABS: ALBUMIN 2.6 g/dl (3.4-5.0); ANION GAP 6 MMOL/L (8-16); BLOOD UREA NITROGEN 42.1 mg/dL (7-18); CALCIUM 7.5 mg/dL (8.5-10.1); CO2 24 mmol/L (21-32); GLUCOSE,RANDOM 84 mg/dL (74-106); HEMOGLOBIN 6.4 GM/dL (10.7-15.3); MAGNESIUM 1.8 mg/dL (1.8-2.4)
[2020-09-18 09:30] LABS: SGOT/AST 4 U/L (15-37); SGPT/ALT < 6 U/L (13-61)
[2020-09-18 09:31] LABS: CREATININE 3.3 mg/dL (0.55-1.3); PHOSPHOROUS 4.1 mg/dL (2.5-4.9)
[2020-09-18 09:32] LABS: BILIRUBIN,TOTAL 0.6 mg/dL (0.2-1)
[2020-09-18 09:33] LABS: ALK PHOS 81 U/L (45-117)
[2020-09-18] MEDS ORDERED: ALPRAZolam 0.25 MG TABLET PO PRN (10:00)
[2020-09-18] MEDS ORDERED: FUROSEMIDE 40 MG/4 ML INJECTABLE VIAL IVPUSH ONE ×2 (11:00→19:00)
[2020-09-18] MEDS: SODIUM CHLORIDE 1,000 ML IV SCH (12:00)
[2020-09-18 13:34] LABS: ANISOCYTOSIS 0; MACROCYTOSIS 0; OVALOCYTE 1+; PLATELET ESTIMATE NORMAL
[2020-09-18] MEDS ORDERED: ALPRAZolam 1 MG TABLET PO PRN (18:01)
[2020-09-18] MEDS: ACETAMINOPHEN 325 MG TABLET (FP) PO PRN (19:13)
[2020-09-18] MEDS: ZOLPIDEM TARTRATE 5 MG TABLET PO PRN (22:05)
[2020-09-19] MEDS ORDERED: PIPERACILLIN/TAZOBACTAM 2.25 GM VIAL IVPB ONE ×3 (01:22→18:08)
[2020-09-19] MEDS ORDERED: DEXTROSE 5%-WATER - 50 ML IVPB ONE ×3 (01:22→18:08)
[2020-09-19 02:33] LABS: BASO % 1.2 % (0-2.0); EOS % 3.1 % (0-4.5); HEMATOCRIT 28.7 % (32.4-45.2); HEMOGLOBIN 9.4 GM/dL (10.7-15.3); LYMPH % 17.1 % (8-40); MCH 26.6 pg (25.7-33.7); MCHC 32.7 g/dl (32.0-36.0); MEAN CELL VOLUME 81.3 fl (80-96); MEAN PLT VOLUME 10.6 fl (7.5-11.1); MONO % 11.9 % (3.8-10.2); NEUT % 66.7 % (42.8-82.8); PLATELET COUNT 286 K/MM3 (134-434); RBC 3.53 M/mm3 (3.60-5.2); RDW 20.3 % (11.6-15.6)
[2020-09-19] MEDS: PIPERACILLIN/TAZOB 2.25 GM 2.25 GM in DEXTROSE 5%-WATER - 50 ML IVPB SCH ×3 (02:34→18:15)
[2020-09-19 03:34] LABS: ANISOCYTOSIS 1+; MACROCYTOSIS 1+; OVALOCYTE 1+; PLATELET ESTIMATE NORMAL; TEAR DROP CELLS 1+
[2020-09-19] MEDS: ALPRAZolam 0.25 MG TABLET PO PRN ×2 (04:30→18:47)
[2020-09-19] MEDS: LEVOTHYROXINE NA 25 MCG TABLET (FP) PO SCH (06:18)
[2020-09-19] MEDS ORDERED: PT OWN MED DRAWER 7, Y5N ONE ×2 (08:29→08:47)
[2020-09-19] MEDS: PHENAZOPYRIDINE HCL 100 MG TABLET (FP) PO SCH ×3 (08:51→18:16)
[2020-09-19] MEDS: TAMSULOSIN HCL 0.4 MG CAP PO SCH ×2 (08:51→21:48)
[2020-09-19] MEDS: THIAMINE HCL 100 MG TABLET (FP) PO SCH (10:16)
[2020-09-19] MEDS: CALCIUM 500MG/VIT-D 200 UNITS COMBO TABLET (FP) PO SCH (10:16)
[2020-09-19] MEDS: VITAMIN B COMP W-C 1 EA TABLET (NEPHRO-VITE) PO SCH (10:16)
[2020-09-19] MEDS: LACTOBACILLUS ACIDOPHILUS 1 TABLET PO SCH ×3 (10:16→21:48)
[2020-09-19] MEDS: amLODIPine BESYLATE 10 MG TABLET (FP) PO SCH (10:16)
[2020-09-19 10:43] LABS: EOS % 3.3 % (0-4.5); HEMATOCRIT 30.8 % (32.4-45.2); HEMOGLOBIN 10.4 GM/dL (10.7-15.3); LYMPH % 15.8 % (8-40); MCH 27.2 pg (25.7-33.7); MCHC 33.6 g/dl (32.0-36.0); MEAN CELL VOLUME 80.9 fl (80-96); MEAN PLT VOLUME 10.7 fl (7.5-11.1); NEUT % 69.9 % (42.8-82.8); PLATELET COUNT 326 K/MM3 (134-434); RBC 3.81 M/mm3 (3.60-5.2); RDW 19.8 % (11.6-15.6); WHITE BLOOD COUNT 8.5 K/mm3 (4.0-10.0)
[2020-09-19 11:47] LABS: ANION GAP 10 MMOL/L (8-16); BLOOD UREA NITROGEN 37.7 mg/dL (7-18); CALCIUM 7.7 mg/dL (8.5-10.1); CHLORIDE 106 mmol/L (98-107); CO2 24 mmol/L (21-32); SODIUM 139 mmol/L (136-145)
[2020-09-19 11:48] LABS: GLUCOSE,RANDOM 131 mg/dL (74-106); MAGNESIUM 1.6 mg/dL (1.8-2.4)
[2020-09-19 11:50] LABS: SGPT/ALT < 6 U/L (13-61)
[2020-09-19 11:51] LABS: CREATININE 3.1 mg/dL (0.55-1.3); PHOSPHOROUS 3.7 mg/dL (2.5-4.9); SGOT/AST 5 U/L (15-37)
[2020-09-19 11:52] LABS: BILIRUBIN,TOTAL 0.7 mg/dL (0.2-1); TOT PROT 5.8 g/dl (6.4-8.2)
[2020-09-19 11:53] LABS: ALK PHOS 87 U/L (45-117)
[2020-09-19] MEDS ORDERED: MAGNESIUM OXIDE 400 MG TABLET (FP) PO ONE (12:12)
[2020-09-19] MEDS: SODIUM CHLORIDE 1,000 ML IV SCH ×2 (12:24→21:57)
[2020-09-19 12:34] LABS: ANISOCYTOSIS 2+; MACROCYTOSIS 0; PLATELET ESTIMATE NORMAL; TARGET CELLS 1+
[2020-09-19] MEDS: HEPARIN NA (PORCINE) 5,000 UNITS/ML 1ML VIAL SQ SCH ×2 (13:24→21:48)
[2020-09-19] MEDS ORDERED: LOPERAMIDE HCL 2 MG CAPSULE PO ONE (18:22)
[2020-09-19] MEDS: ZOLPIDEM TARTRATE 5 MG TABLET PO PRN (21:48)
[2020-09-20] MEDS ORDERED: DEXTROSE 5%-WATER - 50 ML IVPB ONE ×3 (02:40→17:15)
[2020-09-20] MEDS ORDERED: PIPERACILLIN/TAZOBACTAM 2.25 GM VIAL IVPB ONE ×3 (02:40→17:15)
[2020-09-20] MEDS: PIPERACILLIN/TAZOB 2.25 GM 2.25 GM in DEXTROSE 5%-WATER - 50 ML IVPB SCH ×3 (02:50→18:23)
[2020-09-20] MEDS: HEPARIN NA (PORCINE) 5,000 UNITS/ML 1ML VIAL SQ SCH ×3 (06:36→21:44)
[2020-09-20] MEDS: LEVOTHYROXINE NA 25 MCG TABLET (FP) PO SCH (06:37)
[2020-09-20] MEDS: ALPRAZolam 0.25 MG TABLET PO PRN (08:28)
[2020-09-20] MEDS ORDERED: PT OWN MED DRAWER 7, Y5N ONE (09:33)
[2020-09-20 09:47] LABS: BASO % 1.2 % (0-2.0); EOS % 3.1 % (0-4.5); HEMATOCRIT 32.7 % (32.4-45.2); HEMOGLOBIN 10.5 GM/dL (10.7-15.3); LYMPH % 14.8 % (8-40); MCH 26.8 pg (25.7-33.7); MCHC 32.3 g/dl (32.0-36.0); MEAN CELL VOLUME 82.9 fl (80-96); MEAN PLT VOLUME 10.6 fl (7.5-11.1); MONO % 9.7 % (3.8-10.2); NEUT % 71.2 % (42.8-82.8); PLATELET COUNT 357 K/MM3 (134-434); RBC 3.94 M/mm3 (3.60-5.2); RDW 20.2 % (11.6-15.6); WHITE BLOOD COUNT 8.2 K/mm3 (4.0-10.0)
[2020-09-20] MEDS: VITAMIN B COMP W-C 1 EA TABLET (NEPHRO-VITE) PO SCH (09:51)
[2020-09-20] MEDS: LACTOBACILLUS ACIDOPHILUS 1 TABLET PO SCH ×2 (09:51→21:43)
[2020-09-20] MEDS: amLODIPine BESYLATE 10 MG TABLET (FP) PO SCH (09:51)
[2020-09-20] MEDS: PHENAZOPYRIDINE HCL 100 MG TABLET (FP) PO SCH ×3 (09:51→18:23)
[2020-09-20] MEDS: THIAMINE HCL 100 MG TABLET (FP) PO SCH (09:51)
[2020-09-20] MEDS: TAMSULOSIN HCL 0.4 MG CAP PO SCH ×2 (09:51→21:43)
[2020-09-20] MEDS: CALCIUM 500MG/VIT-D 200 UNITS COMBO TABLET (FP) PO SCH (09:51)
[2020-09-20 10:17] LABS: POTASSIUM 3.9 mmol/L (3.5-5.1)
[2020-09-20 10:19] LABS: ALBUMIN 3.1 g/dl (3.4-5.0); BLOOD UREA NITROGEN 33.1 mg/dL (7-18); CALCIUM 7.8 mg/dL (8.5-10.1)
[2020-09-20 10:20] LABS: MAGNESIUM 1.6 mg/dL (1.8-2.4)
[2020-09-20 10:22] LABS: PHOSPHOROUS 3.4 mg/dL (2.5-4.9)
[2020-09-20 10:23] LABS: CREATININE 2.5 mg/dL (0.55-1.3)
[2020-09-20 10:24] LABS: BILIRUBIN,TOTAL 0.7 mg/dL (0.2-1); TOT PROT 5.9 g/dl (6.4-8.2)
[2020-09-20 10:54] LABS: ANISOCYTOSIS 2+; MACROCYTOSIS 0; OVALOCYTE 2+; PLATELET ESTIMATE NORMAL; TARGET CELLS 1+
[2020-09-20] MEDS: SODIUM CHLORIDE 1,000 ML IV SCH (12:05)
[2020-09-20] MEDS ORDERED: MAGNESIUM OXIDE 400 MG TABLET (FP) PO ONE (21:14)
[2020-09-20] MEDS: ZOLPIDEM TARTRATE 5 MG TABLET PO PRN (21:43)
[2020-09-21] MEDS ORDERED: DEXTROSE 5%-WATER - 50 ML IVPB ONE ×2 (02:59→08:06)
[2020-09-21] MEDS ORDERED: PIPERACILLIN/TAZOBACTAM 2.25 GM VIAL IVPB ONE ×2 (02:59→08:05)
[2020-09-21] MEDS: PIPERACILLIN/TAZOB 2.25 GM 2.25 GM in DEXTROSE 5%-WATER - 50 ML IVPB SCH ×2 (03:00→09:36)
[2020-09-21] MEDS: SODIUM CHLORIDE 1,000 ML IV SCH ×2 (06:04→12:17)
[2020-09-21] MEDS: HEPARIN NA (PORCINE) 5,000 UNITS/ML 1ML VIAL SQ SCH ×2 (06:10→15:01)
[2020-09-21] MEDS: LEVOTHYROXINE NA 25 MCG TABLET (FP) PO SCH (06:10)
[2020-09-21] MEDS ORDERED: PT OWN MED DRAWER 7, Y5N ONE ×2 (08:05→09:30)
[2020-09-21] MEDS: TAMSULOSIN HCL 0.4 MG CAP PO SCH (09:35)
[2020-09-21] MEDS: amLODIPine BESYLATE 10 MG TABLET (FP) PO SCH (09:36)
[2020-09-21] MEDS: CALCIUM 500MG/VIT-D 200 UNITS COMBO TABLET (FP) PO SCH (09:36)
[2020-09-21] MEDS: LACTOBACILLUS ACIDOPHILUS 1 TABLET PO SCH (09:36)
[2020-09-21] MEDS: THIAMINE HCL 100 MG TABLET (FP) PO SCH (09:36)
[2020-09-21] MEDS: PHENAZOPYRIDINE HCL 100 MG TABLET (FP) PO SCH ×2 (09:36→12:47)
[2020-09-21] MEDS: VITAMIN B COMP W-C 1 EA TABLET (NEPHRO-VITE) PO SCH (09:36)
[2020-09-21 10:04] LABS: BASO % 1.3 % (0-2.0); EOS % 3.2 % (0-4.5); HEMOGLOBIN 10.6 GM/dL (10.7-15.3); LYMPH % 15.7 % (8-40); MCH 26.7 pg (25.7-33.7); MCHC 32.2 g/dl (32.0-36.0); MEAN PLT VOLUME 10.5 fl (7.5-11.1); MONO % 12.1 % (3.8-10.2); NEUT % 67.7 % (42.8-82.8); PLATELET COUNT 356 K/MM3 (134-434); RBC 3.97 M/mm3 (3.60-5.2); RDW 20.9 % (11.6-15.6); WHITE BLOOD COUNT 8.7 K/mm3 (4.0-10.0)
[2020-09-21 10:28] LABS: ALBUMIN 3.1 g/dl (3.4-5.0); BLOOD UREA NITROGEN 31.8 mg/dL (7-18); CALCIUM 8.1 mg/dL (8.5-10.1); MAGNESIUM 1.7 mg/dL (1.8-2.4)
[2020-09-21 10:31] LABS: CREATININE 2.3 mg/dL (0.55-1.3); PHOSPHOROUS 3.4 mg/dL (2.5-4.9)
[2020-09-21 10:33] LABS: BILIRUBIN,TOTAL 0.7 mg/dL (0.2-1); TOT PROT 6.1 g/dl (6.4-8.2)
[2020-09-21 10:34] LABS: POTASSIUM 4.2 mmol/L (3.5-5.1)
[2020-09-21 13:13] LABS: ANISOCYTOSIS 1+; MACROCYTOSIS 1+; PLATELET ESTIMATE NORMAL
[2020-09-21 14:39] VITALS: BP 135/68; PULSE 85; TEMP 98.4
[2020-09-21] MEDS ORDERED: MAGNESIUM OXIDE 400 MG TABLET (FP) PO ONE (15:36)
== END 2020-09-21 18:36 | disposition home or self-care (01) | DRG 659 ==
LOC: FER 13:15 → EEVIPCON 20:04 → FM/S 20:04 → J6S 09-11 15:03
PROVIDERS: ADMIT Internal Medicine; ATTEND Internal Medicine
PROC: 0TP98DZ Removal of Intraluminal Device from Ureter, Via Natural or Artificial Opening Endoscopic (ICD-10-PCS; 2020-09-14)
PROC: 0TP98DZ Removal of Intraluminal Device from Ureter, Via Natural or Artificial Opening Endoscopic (ICD-10-PCS; 2020-09-14)
PROC: BT14ZZZ Fluoroscopy of Kidneys, Ureters and Bladder (ICD-10-PCS; 2020-09-14)
PROC: 0TJB8ZZ Inspection of Bladder, Via Natural or Artificial Opening Endoscopic (ICD-10-PCS; 2020-09-14)
PROC: 0TC68ZZ Extirpation of Matter from Right Ureter, Via Natural or Artificial Opening Endoscopic (ICD-10-PCS; principal; 2020-09-14 17:00)
PROC: 0T788DZ Dilation of Bilateral Ureters with Intraluminal Device, Via Natural or Artificial Opening Endoscopic (ICD-10-PCS; 2020-09-14 17:00)
PROC: 30233N1 Transfusion of Nonautologous Red Blood Cells into Peripheral Vein, Percutaneous Approach (ICD-10-PCS; 2020-09-18)
DX: N17.9 Acute kidney failure, unspecified (principal); E43 Unspecified severe protein-calorie malnutrition; E87.2 Acidosis; N13.8 Other obstructive and reflux uropathy; Z68.1 Body mass index [BMI] 19.9 or less, adult; R53.1 Weakness; N13.2 Hydronephrosis with renal and ureteral calculous obstruction; E03.9 Hypothyroidism, unspecified; D46.9 Myelodysplastic syndrome, unspecified; F41.9 Anxiety disorder, unspecified; R29.6 Repeated falls; E87.5 Hyperkalemia; I12.9 Hypertensive chronic kidney disease with stage 1 through stage 4 chronic kidney disease, or unspecified chronic kidney disease; N18.9 Chronic kidney disease, unspecified; Z96.643 Presence of artificial hip joint, bilateral
CPT/HCPCS: 36415; 36430; 36511; 71045-TC-FY; 74176-TC; 76000-TC-FY; 76775-TC; 76856-TC; 80053; 80061; 81003; 81015; 82306; 82360; 82550; 82607; 82728; 83036; 83540; 83550; 83605; 83735; 83880; 84100; 84439; 84443; 84484; 85025; 85027; 85610; 85730; 86140; 86850; 86900; 86901; 86922; 87040; 87077; 87086; 88108; 88300-TC; 93005; 94010; 94760; 94761; 97116-GP; 97162-GP; 99285-25; C9803; J0131; J1644; P9038; P9058; U0003

== ENCOUNTER 2020-10-09 12:01 | Emergency (ER) | payer OTHER, MEDICARE ==
[2020-10-09 12:27] VITALS: BMI 16.9
[2020-10-09] MEDS ORDERED: ACETAMINOPHEN 500 MG TABLET (FP) PO ONE (13:14)
[2020-10-09] MEDS ORDERED: ACETAMINOPHEN 325 MG TABLET (FP) ONE (13:20)
[2020-10-09] MEDS ORDERED: SODIUM CHLORIDE 0.9% 1000 ML INFUS.BAG IV ONE (14:42)
[2020-10-09 15:36] LABS: HEMATOCRIT 31.3 % (32.4-45.2); HEMOGLOBIN 9.9 GM/dL (10.7-15.3); LYMPH % 14.6 % (8-40); MCH 26.6 pg (25.7-33.7); MCHC 31.7 g/dl (32.0-36.0); MEAN CELL VOLUME 84.1 fl (80-96); MEAN PLT VOLUME 9.3 fl (7.5-11.1); MONO % 9.7 % (3.8-10.2); NEUT % 73.7 % (42.8-82.8); PLATELET COUNT 326 K/MM3 (134-434); RBC 3.73 M/mm3 (3.60-5.2); RDW 23.6 % (11.6-15.6); WHITE BLOOD COUNT 9.8 K/mm3 (4.0-10.0)
[2020-10-09 15:42] LABS: INR 1.09 (0.83-1.09); PROTHROMBIN TIME (PATIENT) 13.4 SEC (9.7-13.0)
[2020-10-09] MEDS ORDERED: PROPOFOL 20 ML ONE (15:45)
[2020-10-09 15:48] LABS: CHLORIDE 111 mmol/L (98-107); SODIUM 140 mmol/L (136-145)
[2020-10-09 15:50] LABS: CALCIUM 8.6 mg/dL (8.5-10.1)
[2020-10-09 15:51] LABS: ALBUMIN 3.5 g/dl (3.4-5.0); CO2 16 mmol/L (21-32); GLUCOSE,RANDOM 83 mg/dL (74-106)
[2020-10-09 15:54] LABS: ANION GAP 12 MMOL/L (8-16); CREATININE 4.3 mg/dL (0.55-1.3); SGOT/AST 12 U/L (15-37); SGPT/ALT 14 U/L (13-61)
[2020-10-09 15:55] LABS: BILIRUBIN,TOTAL 0.4 mg/dL (0.2-1)
[2020-10-09 15:56] LABS: TOT PROT 6.8 g/dl (6.4-8.2)
[2020-10-09 15:57] LABS: ALK PHOS 155 U/L (45-117)
[2020-10-09] MEDS ORDERED: PROPOFOL 200 MG/20 ML VIAL IVPUSH ONE (16:03)
[2020-10-09 16:28] LABS: ANISOCYTOSIS 3+; MACROCYTOSIS 1+; OVALOCYTE 1+; PLATELET ESTIMATE NORMAL
[2020-10-09 17:06] LABS: CHLORIDE 115 mmol/L (98-107); SODIUM 139 mmol/L (136-145)
[2020-10-09 17:07] LABS: CALCIUM 7.9 mg/dL (8.5-10.1)
[2020-10-09 17:08] LABS: BLOOD UREA NITROGEN 57.7 mg/dL (7-18); CO2 16 mmol/L (21-32); GLUCOSE,RANDOM 77 mg/dL (74-106)
[2020-10-09 17:11] LABS: CREATININE 4.3 mg/dL (0.55-1.3)
[2020-10-09 17:18] LABS: ANION GAP 8 MMOL/L (8-16)
[2020-10-09] MEDS ORDERED: CALCIUM GLUC IN NACL, ISO-OSM 1 GM/50 ML BAG IVPB ONE (17:59)
[2020-10-09] MEDS ORDERED: DEXTROSE 50%-WATER - 25 GM/50 ML VIAL ONE (17:59)
[2020-10-09] MEDS ORDERED: INSULIN REGULAR HUMAN 100 UNITS/ML *VIAL ONE (18:00)
[2020-10-09] MEDS ORDERED: SODIUM ZIRCONIUM CYCLOSILICATE (LOKELMA) 5 GM PACKET ONE (18:00)
[2020-10-09 18:02] LABS: EPI CELLS >36 /uL (0-25.1); HYALINE CASTS 1 /uL (0-3.1); URINE APPEARANCE CLOUDY; URINE BACTERIA 54 /uL (0-1359); URINE BILIRUBIN NEGATIVE (NEGATIVE); URINE COLOR YELLOW; URINE GLUCOSE (UA) NEGATIVE (NEGATIVE); URINE KETONE NEGATIVE (NEGATIVE); URINE LEUK ESTERASE 2+ (NEGATIVE); URINE NITRITE NEGATIVE (NEGATIVE); URINE PROTEIN 2+ (NEGATIVE); URINE RBC 362 /uL (0-23.9); URINE UROBILINOGEN 0.2 mg/dL (0.2-1.0); URINE WBC 133 /uL (0-25.8)
[2020-10-09] MEDS ORDERED: INSULIN REGULAR HUMAN 100 UNITS/ML *VIAL IVPUSH ONE (18:04)
[2020-10-09] MEDS ORDERED: DEXTROSE 50%-WATER - 25 GM/50 ML VIAL IVPUSH ONE (18:05)
[2020-10-09] MEDS ORDERED: SODIUM BICARBONATE 8.4% 50 MEQ/50 ML VIAL IVPUSH ONE (18:06)
[2020-10-09] MEDS ORDERED: SODIUM BICARBONATE 8.4% 50 MEQ/50 ML VIAL ONE (18:07)
[2020-10-09] MEDS ORDERED: CALCIUM GLUCONATE 10% - 1,000 MG/10 ML VIAL IVPUSH ONE (18:10)
[2020-10-09] MEDS ORDERED: PIPERACILLIN/TAZOB 3.375 GM 3.375 GM in DEXTROSE 5%-WATER - 50 ML IVPB ONE (18:38)
[2020-10-09] MEDS ORDERED: VANCOMYCIN 1 GM PREMIX - 1 GM/200 ML BAG IVPB ONE (19:16)
[2020-10-09] MEDS ORDERED: PIPERACILLIN/TAZOB 3.375 GM 3.375 GM/50 ML BAG IVPB ONE (19:24)
[2020-10-09 20:18] VITALS: BP 149/76; PULSE 87; TEMP 97.6
[2020-10-10] MEDS ORDERED: SODIUM ZIRCONIUM CYCLOSILICATE (LOKELMA) 5 GM PACKET PO ONE (19:29)
== END 2020-10-09 20:18 | disposition short-term general hospital (02) ==
LOC: JER 12:01
PROC: 3E033GC Introduction of Other Therapeutic Substance into Peripheral Vein, Percutaneous Approach (ICD-10-PCS; principal; 2020-10-09)
PROC: 3E033GC Introduction of Other Therapeutic Substance into Peripheral Vein, Percutaneous Approach (ICD-10-PCS; 2020-10-09)
PROC: 3E013VG Introduction of Insulin into Subcutaneous Tissue, Percutaneous Approach (ICD-10-PCS; 2020-10-09)
PROC: 3E03329 Introduction of Other Anti-infective into Peripheral Vein, Percutaneous Approach (ICD-10-PCS; 2020-10-09)
PROC: 3E033GC Introduction of Other Therapeutic Substance into Peripheral Vein, Percutaneous Approach (ICD-10-PCS; 2020-10-09)
PROC: 3E03329 Introduction of Other Anti-infective into Peripheral Vein, Percutaneous Approach (ICD-10-PCS; 2020-10-09)
DX: N19 Unspecified kidney failure (principal); S73.004A Unspecified dislocation of right hip, initial encounter; S22.32XA Fracture of one rib, left side, initial encounter for closed fracture
CPT/HCPCS: 36415; 70450-TC; 71045-TC-FY; 72125-TC; 72170-TC-FY; 73110-TC-LT-FY; 73130-TC-LT-FY; 73502-TC-RT-FY; 73552-TC-RT-FY; 73610-TC-RT-FY; 80048; 80053; 81003; 82550; 84484; 85025; 85610; 85730; 93005; 93010; 99285-25; C9803; U0003; U0005

== ENCOUNTER 2020-12-21 17:09 | Inpatient (IN) | payer OTHER, MEDICARE ==
[2020-12-21] MEDS ORDERED: LACTATED RINGERS SOLUTION 1,000 ML/1,000 ML INFUS.BAG IV STA (17:28)
[2020-12-21 18:12] LABS: MCHC 32.2 g/dl (32.0-36.0); MEAN PLT VOLUME 10.2 fl (7.5-11.1); PLATELET COUNT 327 10^3/uL (134-434); RBC 2.59 M/mm3 (3.60-5.2); RDW 23.8 % (11.6-15.6); WHITE BLOOD COUNT 11.1 K/mm3 (4.0-10.8)
[2020-12-21 18:17] LABS: HEMATOCRIT 23.3 % (32.4-45.2); HEMOGLOBIN 7.5 GM/dl (10.7-15.3)
[2020-12-21 18:30] LABS: INR 1.21 (0.82-1.09); PROTHROMBIN TIME (PATIENT) 13.4 SEC (10.2-13.0)
[2020-12-21 18:31] LABS: ALBUMIN 3.8 g/dl (3.4-5.0); ALK PHOS 102 U/L (45-117); ANION GAP 12 MMOL/L (8-16); BILIRUBIN,TOTAL 0.8 mg/dl (0.2-1); CALCIUM 8.1 mg/dl (8.5-10); CHLORIDE 102 mmol/L (98-107); CO2 21 mmol/L (21-32); CREATININE 2.9 mg/dl (0.55-1.3); GLUCOSE,RANDOM 105 mg/dl (74-106); MAGNESIUM 1.9 mg/dL (1.8-2.4); PHOSPHOROUS 4.3 mg/dl (2.5-4.9); SGOT/AST 8 U/L (15-37); SGPT/ALT 9 U/L (13-61); SODIUM 135 mmol/L (136-145)
[2020-12-21] MEDS ORDERED: ACETAMINOPHEN INJECTION 100 ML IVPB ONE (19:48)
[2020-12-21] MEDS ORDERED: ACETAMINOPHEN 1000 MG/100 ML VIAL (NON FORMULARY) IVPB ONE (19:48)
[2020-12-21 21:27] LABS: PLATELET ESTIMATE ADEQUATE
[2020-12-21] MEDS ORDERED: ZOLPIDEM TARTRATE 5 MG TABLET PO PRN (22:00)
[2020-12-21] MEDS: LACTOBACILLUS ACIDOPHILUS 1 TABLET PO SCH (22:41)
[2020-12-21] MEDS: TAMSULOSIN HCL 0.4 MG CAP PO SCH (22:41)
[2020-12-21 23:27] VITALS: BMI 18.7
[2020-12-22] MEDS ORDERED: CODEINE SO4 30 MG TABLET PO PRN (01:27)
[2020-12-22] MEDS ORDERED: ACETAMINOPHEN 1000 MG/100 ML VIAL (NON FORMULARY) IVPB ONE (01:34)
[2020-12-22] MEDS ORDERED: ACETAMINOPHEN WITH CODEINE 300MG/30MG TABLET PO PRN ×2 (04:36→04:39)
[2020-12-22] MEDS: LEVOTHYROXINE NA 25 MCG TABLET (FP) PO SCH (06:19)
[2020-12-22 08:29] LABS: CALCIUM 7.5 mg/dl (8.5-10); CREATININE 2.7 mg/dl (0.55-1.3)
[2020-12-22] MEDS ORDERED: LACTATED RINGERS SOLUTION 1,000 ML/1,000 ML INFUS.BAG IV SCH (08:45)
[2020-12-22 09:05] LABS: HEMOGLOBIN 6.6 GM/dl (10.7-15.3); MCH 29.4 pg (25.7-33.7); MCHC 32.7 g/dl (32.0-36.0); MEAN CELL VOLUME 89.7 fl (80-96); MEAN PLT VOLUME 10.8 fl (7.5-11.1); PLATELET COUNT 254 10^3/uL (134-434); RBC 2.23 M/mm3 (3.60-5.2); RDW 23.9 % (11.6-15.6); WHITE BLOOD COUNT 6.3 K/mm3 (4.0-10.8)
[2020-12-22] MEDS: TAMSULOSIN HCL 0.4 MG CAP PO SCH ×2 (09:32→21:37)
[2020-12-22] MEDS: LOPERAMIDE HCL 2 MG CAPSULE PO SCH (09:44)
[2020-12-22] MEDS: THIAMINE HCL 100 MG TABLET (FP) PO SCH (09:44)
[2020-12-22] MEDS: LACTOBACILLUS ACIDOPHILUS 1 TABLET PO SCH (09:44)
[2020-12-22] MEDS ORDERED: CALCIUM 500MG/VIT-D 200 UNITS COMBO TABLET (FP) PO SCH (10:00)
[2020-12-22] MEDS ORDERED: amLODIPine BESYLATE 10 MG TABLET (FP) PO SCH (10:00)
[2020-12-22] MEDS ORDERED: DEXTROSE 5%-WATER - 50 ML IVPB ONE (11:50)
[2020-12-22] MEDS ORDERED: cefTRIAXone SODIUM 1 GM VIAL ONE (11:50)
[2020-12-22] MEDS: CEFTRIAXONE 1 GM in DEXTROSE 5%-WATER - 50 ML IVPB SCH (11:55)
[2020-12-22] MEDS: SODIUM CHLORIDE 1,000 ML IV SCH (11:57)
[2020-12-22] MEDS ORDERED: ONDANSETRON 4 MG/2 ML VIAL IVPUSH PRN (12:49)
[2020-12-22] MEDS ORDERED: LACTATED RINGERS SOLUTION 1,000 ML IV SCH (13:00)
[2020-12-22] MEDS ORDERED: PROPOFOL 20 ML ONE (13:13)
[2020-12-22] MEDS ORDERED: SUCCINYLCHOLINE CHLORIDE 200 MG/10 ML SYRINGE ONE (13:13)
[2020-12-22] MEDS: ACETAMINOPHEN 1000 MG/100 ML VIAL (NON FORMULARY) IVPB PRN (17:12)
[2020-12-22] MEDS ORDERED: oxyCODONE HCL 5 MG TABLET PO ONE (20:30)
[2020-12-23] MEDS: ACETAMINOPHEN 1000 MG/100 ML VIAL (NON FORMULARY) IVPB PRN (03:48)
[2020-12-23] MEDS: LEVOTHYROXINE NA 25 MCG TABLET (FP) PO SCH (06:59)
[2020-12-23 08:23] LABS: ALBUMIN 2.6 g/dl (3.4-5.0); BILIRUBIN,TOTAL 0.5 mg/dl (0.2-1); CALCIUM 7.3 mg/dl (8.5-10); CREATININE 2.4 mg/dl (0.55-1.3); MAGNESIUM 1.7 mg/dL (1.8-2.4)
[2020-12-23] MEDS: TAMSULOSIN HCL 0.4 MG CAP PO SCH ×2 (08:40→21:36)
[2020-12-23 08:48] LABS: BASO % 1.7 % (0-2.0); EOS % 3.5 % (0-4.5); HEMATOCRIT 20.5 % (32.4-45.2); HEMOGLOBIN 6.8 GM/dl (10.7-15.3); LYMPH % 24.5 % (8-40); MCH 29.9 pg (25.7-33.7); MCHC 33.3 g/dl (32.0-36.0); MEAN CELL VOLUME 89.8 fl (80-96); MEAN PLT VOLUME 10.1 fl (7.5-11.1); MONO % 16.3 % (3.8-10.2); PLATELET COUNT 224 10^3/uL (134-434); RBC 2.28 M/mm3 (3.60-5.2); RDW 21.2 % (11.6-15.6); WHITE BLOOD COUNT 5.6 K/mm3 (4.0-10.8)
[2020-12-23] MEDS ORDERED: cefTRIAXone SODIUM 1 GM VIAL ONE (10:21)
[2020-12-23] MEDS ORDERED: DEXTROSE 5%-WATER - 50 ML IVPB ONE (10:22)
[2020-12-23] MEDS: HEPARIN NA (PORCINE) 5,000 UNITS/ML 1ML VIAL SQ SCH ×2 (10:31→21:36)
[2020-12-23] MEDS: CEFTRIAXONE 1 GM in DEXTROSE 5%-WATER - 50 ML IVPB SCH (10:31)
[2020-12-23] MEDS: LOPERAMIDE HCL 2 MG CAPSULE PO SCH (10:31)
[2020-12-23] MEDS: THIAMINE HCL 100 MG TABLET (FP) PO SCH (10:31)
[2020-12-23] MEDS: SODIUM CHLORIDE 1,000 ML IV SCH (11:40)
[2020-12-23] MEDS: ACETAMINOPHEN 325 MG TABLET (FP) PO PRN (17:35)
[2020-12-23 18:58] LABS: HEMATOCRIT 25.7 % (32.4-45.2); HEMOGLOBIN 8.6 GM/dl (10.7-15.3); MCHC 33.6 g/dl (32.0-36.0); MEAN CELL VOLUME 89.3 fl (80-96); MEAN PLT VOLUME 10.3 fl (7.5-11.1); PLATELET COUNT 289 10^3/uL (134-434); RBC 2.88 M/mm3 (3.60-5.2); RDW 20.4 % (11.6-15.6); WHITE BLOOD COUNT 8.2 K/mm3 (4.0-10.8)
[2020-12-24] MEDS ORDERED: oxyCODONE HCL 5 MG TABLET PO ONE (00:09)
[2020-12-24] MEDS: ACETAMINOPHEN 325 MG TABLET (FP) PO PRN (05:42)
[2020-12-24] MEDS: LEVOTHYROXINE NA 25 MCG TABLET (FP) PO SCH (06:44)
[2020-12-24 08:10] LABS: BASO % 0.5 % (0-2.0); EOS % 3.8 % (0-4.5); HEMATOCRIT 25.7 % (32.4-45.2); HEMOGLOBIN 8.7 GM/dl (10.7-15.3); LYMPH % 27.3 % (8-40); MCH 30.5 pg (25.7-33.7); MCHC 33.9 g/dl (32.0-36.0); MEAN PLT VOLUME 10.2 fl (7.5-11.1); MONO % 15.2 % (3.8-10.2); NEUT % 53.2 % (42.8-82.8); PLATELET COUNT 282 10^3/uL (134-434); RBC 2.86 M/mm3 (3.60-5.2); RDW 20.6 % (11.6-15.6); WHITE BLOOD COUNT 6.6 K/mm3 (4.0-10.8)
[2020-12-24 08:12] LABS: ALBUMIN 2.9 g/dl (3.4-5.0); CALCIUM 7.7 mg/dl (8.5-10); CREATININE 2.2 mg/dl (0.55-1.3); MAGNESIUM 1.7 mg/dL (1.8-2.4); TOT PROT 5.6 g/dl (6.4-8.2)
[2020-12-24] MEDS ORDERED: cefTRIAXone SODIUM 1 GM VIAL ONE (09:18)
[2020-12-24] MEDS ORDERED: DEXTROSE 5%-WATER - 50 ML IVPB ONE (09:18)
[2020-12-24] MEDS: THIAMINE HCL 100 MG TABLET (FP) PO SCH (09:27)
[2020-12-24] MEDS: TAMSULOSIN HCL 0.4 MG CAP PO SCH (09:27)
[2020-12-24] MEDS: LOPERAMIDE HCL 2 MG CAPSULE PO SCH (09:27)
[2020-12-24] MEDS: HEPARIN NA (PORCINE) 5,000 UNITS/ML 1ML VIAL SQ SCH (09:27)
[2020-12-24] MEDS: CEFTRIAXONE 1 GM in DEXTROSE 5%-WATER - 50 ML IVPB SCH (09:27)
[2020-12-24 13:53] VITALS: BP 125/58; PULSE 70; TEMP 98.4
== END 2020-12-24 13:39 | disposition home or self-care (01) | DRG 559 ==
LOC: FER 17:09 → FM/S 18:35
PROVIDERS: ADMIT Specialist; ATTEND Nurse Practitioner Acute Care
PROC: 30233N1 Transfusion of Nonautologous Red Blood Cells into Peripheral Vein, Percutaneous Approach (ICD-10-PCS; 2020-12-22)
PROC: 0SS9XZZ Reposition Right Hip Joint, External Approach (ICD-10-PCS; principal; 2020-12-22 13:49)
DX: T84.020A Dislocation of internal right hip prosthesis, initial encounter (principal); E43 Unspecified severe protein-calorie malnutrition; Z68.1 Body mass index [BMI] 19.9 or less, adult; N39.0 Urinary tract infection, site not specified; N13.8 Other obstructive and reflux uropathy; D46.9 Myelodysplastic syndrome, unspecified; E03.9 Hypothyroidism, unspecified; F41.9 Anxiety disorder, unspecified; N18.9 Chronic kidney disease, unspecified; Z96.643 Presence of artificial hip joint, bilateral; W01.0XXA Fall on same level from slipping, tripping and stumbling without subsequent striking against object, initial encounter; B96.20 Unspecified Escherichia coli [E. coli] as the cause of diseases classified elsewhere; Y79.2 Prosthetic and other implants, materials and accessory orthopedic devices associated with adverse incidents; Y92.098 Other place in other non-institutional residence as the place of occurrence of the external cause
CPT/HCPCS: 36415; 36430; 36511; 71045-TC-FY; 71101-TC-LT-FY; 73502-TC-RT-FY; 73523-TC-FY; 73552-TC-RT-FY; 80048; 80053; 81003; 81015; 82550; 83735; 84100; 84443; 84484; 85025; 85027; 85610; 86850; 86870; 86900; 86901; 86902; 86922; 87086; 87186; 93005; 94760; 97116-GP; 97161-GP; 99285-25; C9803; J0131; J1644; P9038; P9058; U0003; U0005

== ENCOUNTER 2022-08-03 08:26 | Day surgery (SDC) | payer OTHER, MEDICARE ==
[2022-07-08 16:37] VITALS: BMI 19.3
[2022-08-03] MEDS ORDERED: CARBACHOL 0.01% INTRA-OCULAR 1.5 ML VIAL ONE (08:57)
[2022-08-03] MEDS ORDERED: NEO/POLYMYX B SULF/DEXAMETH OPHTHALMIC 5ML BOTTLE ONE (08:57)
[2022-08-03] MEDS ORDERED: BSS (NA/CA/MG/K) BALANCED SALT SOLUTION OPHTH SOLN 15 ML BOTTLE ONE (08:57)
[2022-08-03] MEDS: TROPICAMIDE 1% OPHTH SOLN 15 ML BOTTLE ONE ×3 (09:20→09:30)
[2022-08-03] MEDS: PHENYLEPHRINE 2.5% OPTHALMIC DROP 2ML BOTTLE ONE ×3 (09:20→09:30)
[2022-08-03] MEDS: CYCLOPENTOLATE 2% OPHTH SOLN 2 ML BOTTLE ONE ×3 (09:20→09:30)
[2022-08-03] MEDS: CIPROFLOXACIN 0.3% EYE DROPS 5 ML BOTTLE ONE ×3 (09:20→09:30)
[2022-08-03 09:26] VITALS: RESP 16
[2022-08-03] MEDS ORDERED: MIDAZOLAM HCL 2 MG/2 ML SINGLE DOSE VIAL ONE ×2 (10:26→10:30)
[2022-08-03] MEDS ORDERED: ACETAMINOPHEN 325 MG TABLET (FP) ONE (10:51)
[2022-08-03] MEDS ORDERED: ACETAMINOPHEN 1000 MG/100 ML BAG IVPB ONE (11:04)
[2022-08-03 11:14] VITALS: TEMP 97.6
[2022-08-03] MEDS ORDERED: ACETAMINOPHEN 325 MG TABLET (FP) PO ONE (11:22)
[2022-08-03 12:19] VITALS: BP 142/88; PULSE 62
== END 2022-08-03 12:10 | disposition home or self-care (01) ==
LOC: FASU 08:26
PROVIDERS: ATTEND Ophthalmology
PROC: 08RJ3JZ Replacement of Right Lens with Synthetic Substitute, Percutaneous Approach (ICD-10-PCS; principal; 2022-08-03 10:30)
DX: H26.8 Other specified cataract (principal)
CPT/HCPCS: V2632

== ENCOUNTER 2022-09-14 09:25 | Day surgery (SDC) | payer OTHER ==
[2022-09-12 14:13] VITALS: BMI 19.3
[2022-09-14] MEDS ORDERED: CARBACHOL 0.01% INTRA-OCULAR 1.5 ML VIAL ONE (09:49)
[2022-09-14] MEDS ORDERED: NEO/POLYMYX B SULF/DEXAMETH OPHTHALMIC 5ML BOTTLE ONE (09:49)
[2022-09-14] MEDS ORDERED: BSS (NA/CA/MG/K) BALANCED SALT SOLUTION OPHTH SOLN 15 ML BOTTLE ONE (09:49)
[2022-09-14] MEDS ORDERED: CIPROFLOXACIN 0.3% EYE DROPS 5 ML BOTTLE ONE (10:16)
[2022-09-14] MEDS ORDERED: PHENYLEPHRINE 2.5% OPTHALMIC DROP 2ML BOTTLE ONE (10:16)
[2022-09-14] MEDS ORDERED: CYCLOPENTOLATE 2% OPHTH SOLN 2 ML BOTTLE ONE (10:16)
[2022-09-14] MEDS ORDERED: TROPICAMIDE 1% OPHTH SOLN 15 ML BOTTLE ONE (10:16)
[2022-09-14] MEDS ORDERED: PHENYLEPHRINE 2.5% OPTHALMIC DROP BOTTLE OS ONE ×3 (10:30→10:40)
[2022-09-14] MEDS ORDERED: CYCLOPENTOLATE 2% OPHTH SOLN 2 ML BOTTLE OS ONE ×2 (10:30→10:40)
[2022-09-14] MEDS ORDERED: CIPROFLOXACIN 0.3% EYE DROPS 5 ML BOTTLE OS ONE ×2 (10:35→10:40)
[2022-09-14] MEDS ORDERED: TROPICAMIDE 1% OPHTH SOLN 15 ML BOTTLE OS ONE ×2 (10:35→10:40)
[2022-09-14 10:46] VITALS: TEMP 97.8
[2022-09-14] MEDS ORDERED: MIDAZOLAM HCL 2 MG/2 ML SINGLE DOSE VIAL ONE (11:00)
[2022-09-14 15:49] VITALS: RESP 17
[2022-09-14 15:54] VITALS: BP 140/70; PULSE 68
== END 2022-09-14 12:20 | disposition home or self-care (01) ==
LOC: FASU 09:25
PROVIDERS: ATTEND Ophthalmology
PROC: 08RK3JZ Replacement of Left Lens with Synthetic Substitute, Percutaneous Approach (ICD-10-PCS; principal; 2022-09-14 11:05)
DX: H26.8 Other specified cataract (principal)
CPT/HCPCS: 66984; V2632